=== PATIENT | female | born 1965 | race Caucasian/White ===

== ENCOUNTER → 2020-05-04 | Outpatient (CLI) | payer BC ==
--- NOTE | 2020-05-07 09:10 | MM ---
Reason for exam: screening (asymptomatic). Last mammogram was performed 4 years and 3 months ago. History: Patient is postmenopausal. Physical Findings: A clinical breast exam by your physician is recommended on an annual basis and results should be correlated with mammographic findings. MG Screening Mammo w CAD Bilateral CC, MLO, and XCCL view(s) were taken. Prior study comparison: February 08, 2016, bilateral screening mammo w CAD. October 14, 2006, bilateral [place] screening mammogram, performed at [facility]. The breast tissue is heterogeneously dense. This may lower the sensitivity of mammography. There is chronic nodularity bilateral axilla. There is no discrete abnormality. ASSESSMENT: Benign, BI-RAD 2 RECOMMENDATION: Routine screening mammogram of both breasts in 1 year.
== END | disposition home or self-care (01) ==
LOC: RADMAMWWP 12:56
PROVIDERS: ATTEND Family Medicine
DX: Z12.31 Encounter for screening mammogram for malignant neoplasm of breast (principal)
CPT/HCPCS: 77067

== ENCOUNTER 2022-05-19 10:59 | Inpatient (IN) | payer OTHER ==
[2022-05-19] MEDS ORDERED: KETOROLAC 15 MG/ML 1 ML VIAL IVP STA (11:38)
[2022-05-19] MEDS ORDERED: SODIUM CHLORIDE 0.9% 2,000 ML IV STA (11:38)
[2022-05-19] MEDS ORDERED: PANTOPRAZOLE 40 MG/10 ML VIAL IVP STA (11:38)
[2022-05-19] MEDS ORDERED: ONDANSETRON 4 MG/2 ML VIAL IVP STA (11:38)
--- NOTE | 2022-05-19 12:00 | ED ---
Abdominal Pain HPI - General Chief Complaint: Abdominal Pain Stated Complaint: abd & back pain/burning Time Seen by Provider: 05/19/22 11:21 Source: patient, RN notes reviewed Mode of arrival: wheelchair Limitations: no limitations - History of Present Illness Initial Comments: 56-year-old female presents emergency from chief complaint abdominal pain. P atient states his started recently. Patient states started having nausea and vomiting, epigastric abdominal pain. Patient states burning in nature rates her back. Patient states she's history of pancreatitis and this feels similar. Patient does admit that she drank alcohol yesterday. She states she's not drinking and regular basis. Patient states she does not know why she had pancreatitis in the past. No prior abdominal surgeries no chest pain or shortness breath. Denies fevers or chills patient does admit to nausea and diarrhea. - Related Data Home Medications Medication Instructions Recorded Confirmed Cholecalciferol [Vitamin D3] 1,000 unit PO DAILY 02/19/16 02/19/16 Gabapentin [Neurontin] 300 mg PO QAM 02/19/16 02/19/16 Gabapentin [Neurontin] 600 mg PO 1200 02/19/16 02/19/16 Gabapentin [Neurontin] 900 mg PO HS 02/19/16 02/19/16 Morphine Sulfate [Ms Contin] 60 mg PO BID 02/19/16 02/21/16 Oxybutynin Chloride [Ditropan XL] 15 mg PO HS 02/19/16 02/19/16 Sertraline HCl [Zoloft] 100 mg PO DAILY 02/19/16 02/19/16 nitrofurantoin macrocrystaL 100 mg PO BID 02/19/16 02/19/16 [Macrodantin] Allergies Allergy/AdvReac Type Severity Reaction Status Date / Time Penicillins Allergy Severe Unknown Verified 05/19/22 11:11 Sulfa (Sulfonamide Allergy Rash/Hives Verified 05/19/22 11:11 Antibiotics) Review of Systems ROS Statement: Those systems with pertinent positive or pertinent negative responses have been documented in the HPI. ROS Other: All systems not noted in ROS Statement are negative. Past Medical History Past Medical History: Osteoarthritis (OA) Additional Past Medical History / Comment(s): migraines, pancreatitis History of Any Multi-Drug Resistant Organisms: None Reported Past Surgical History: Orthopedic Surgery, Tubal Ligation, Uterine Ablation Additional Past Surgical History / Comment(s): left knee surgery age 8, Past Anesthesia/Blood Transfusion Reactions: No Reported Reaction Past Psychological History: No Psychological Hx Reported Past Alcohol Use History: None Reported Past Drug Use History: None Reported - Past Family History Mother Family Medical History: No Reported History General Exam Limitations: no limitations General appearance: alert, in no apparent distress Head exam: Present: atraumatic, normocephalic, normal inspection Eye exam: Present: normal appearance, PERRL, EOMI. Absent: scleral icterus, conjunctival injection, periorbital swelling ENT exam: Present: normal exam, normal oropharynx, mucous membranes moist Neck exam: Present: normal inspection, full ROM. Absent: tenderness, meningismus, lymphadenopathy Respiratory exam: Present: normal lung sounds bilaterally. Absent: respiratory distress, wheezes, rales, rhonchi, stridor Cardiovascular Exam: Present: regular rate, normal rhythm, normal heart sounds. Absent: systolic murmur, diastolic murmur, rubs, gallop, clicks GI/Abdominal exam: Present: soft, tenderness, normal bowel sounds. Absent: distended, guarding, rebound, rigid Back exam: Absent: CVA tenderness (R), CVA tenderness (L) Neurological exam: Present: alert Course Vital Signs 05/19/22 11:09 Temperature 97.8 F Pulse Rate 68 Respiratory 18 Rate Blood Pressure 110/70 O2 Sat by Pulse 99 Oximetry Medical Decision Making - Medical Decision Making 56-year-old presented for abdominal pain concern for pancreatitis a prescription 20,000, amylase 4000 CT shows evidence of severe acute chronic pancreatitis. Patient admitted for IV fluid hydration. - Lab Data Result diagrams: 05/19/22 12:04 05/19/22 12:04 Lab Results 05/19/22 05/19/22 05/19/22 Range/Units 12:04 12:04 12:04 WBC 8.5 (3.8-10.6) k/uL RBC 4.31 (3.80-5.40) m/uL Hgb 13.8 (11.4-16.0) gm/dL Hct 41.4 (34.0-46.0) % MCV 96.0 (80.0-100.0) fL MCH 31.9 (25.0-35.0) pg MCHC 33.3 (31.0-37.0) g/dL RDW 12.3 (11.5-15.5) % Plt Count 193 (150-450) k/uL MPV 7.5 Neutrophils % 89 % Lymphocytes % 7 % Monocytes % 3 % Eosinophils % 0 % Basophils % 0 % Neutrophils # 7.6 (1.3-7.7) k/uL Lymphocytes # 0.6 L (1.0-4.8) k/uL Monocytes # 0.3 (0-1.0) k/uL Eosinophils # 0.0 (0-0.7) k/uL Basophils # 0.0 (0-0.2) k/uL Sodium 137 (137-145) mmol/L Potassium 3.8 (3.5-5.1) mmol/L Chloride 101 (98-107) mmol/L Carbon Dioxide 24 (22-30) mmol/L Anion Gap 12 mmol/L BUN 22 H (7-17) mg/dL Creatinine 0.67 (0.52-1.04) mg/dL Est GFR (CKD-EPI)AfAm >90 (>60 ml/min/1.73 sqM) Est GFR (CKD-EPI)NonAf >90 (>60 ml/min/1.73 sqM) Glucose 147 H (74-99) mg/dL Plasma Lactic Acid Barry 1.3 (0.7-2.0) mmol/L Calcium 9.5 (8.4-10.2) mg/dL Total Bilirubin 0.4 (0.2-1.3) mg/dL AST 27 (14-36) U/L ALT 15 (4-34) U/L Alkaline Phosphatase 87 (38-126) U/L Total Protein 7.5 (6.3-8.2) g/dL Albumin 4.6 (3.5-5.0) g/dL Amylase 4107 H* (30-110) U/L Lipase >53390 H (23-300) U/L Disposition Clinical Impression: Acute pancreatitis Disposition: ADMITTED IP TO THIS HOSP Condition: Fair Referrals: Brandon Ibarra DO [Primary Care Provider] - 1-2 days Time of Disposition: 13:27
[2022-05-19 12:10] LABS: Basophils % (A) 0 %; Eosinophils % (A) 0 %; HCT 41.4 % (34.0-46.0); HGB 13.8 gm/dL (11.4-16.0); Lymphocytes # (A) 0.6 k/uL (1.0-4.8); Lymphocytes % (A) 7 %; MCH 31.9 pg (25.0-35.0); MCHC 33.3 g/dL (31.0-37.0); Mean Platelet Volume 7.5; Monocytes # (A) 0.3 k/uL (0-1.0); Monocytes % (A) 3 %; Neutrophils # (A) 7.6 k/uL (1.3-7.7); Neutrophils % (A) 89 %; Platelet Count 193 k/uL (150-450); RBC 4.31 m/uL (3.80-5.40); RDW 12.3 % (11.5-15.5); WBC 8.5 k/uL (3.8-10.6)
[2022-05-19 12:31] LABS: ALT 15 U/L (4-34); AST 27 U/L (14-36); African American GFR (CKD) >90 (>60 ml/min/1.73 sqM); Albumin 4.6 g/dL (3.5-5.0); Alkaline Phosphatase 87 U/L (38-126); Anion Gap 12 mmol/L; Blood Urea Nitrogen 22 mg/dL (7-17); Calcium 9.5 mg/dL (8.4-10.2); Carbon Dioxide 24 mmol/L (22-30); Chloride 101 mmol/L (98-107); Glucose 147 mg/dL (74-99); Non-African American GFR(CKD) >90 (>60 ml/min/1.73 sqM); Potassium 3.8 mmol/L (3.5-5.1); Sodium 137 mmol/L (137-145); Total Bilirubin 0.4 mg/dL (0.2-1.3); Total Protein 7.5 g/dL (6.3-8.2)
--- NOTE | 2022-05-19 12:42 | CT ---
EXAMINATION TYPE: CT abdomen pelvis w con DATE OF EXAM: 05/19/2022 HISTORY: Epigastric pain, history of pancreatitis CT DLP: 692.1mGycm Automated Exposure Control for Dose Reduction was Utilized. CONTRAST: CT scan of the abdomen and pelvis is performed without oral but with IV Contrast, patient injected wi th 100 mL of Isovue 300. COMPARISON: None FINDINGS: LUNG BASES: No significant abnormality is appreciated. LIVER/GB: Subcentimeter low dense lesion left hepatic lobe axial image 17 is too small to further saira racterize. No suspicious biliary dilatation. PANCREAS: There are scattered calcifications throughout the entire pancreas particularly peripheral i n location. There is asymmetric prominence or enlargement in the distal body. There is marked ill-def ined surrounding fluid. No well-formed fluid collection is identified no areas of nonenhancement or n ecrosis clearly seen. Pancreatic duct visualized but measuring upper limits of normal. Coronal images show difficulty visualizing distal common bile duct to assess anatomy near the duodenal ampulla. No free air. SPLEEN: No significant abnormality is seen. ADRENALS: No significant abnormality is seen. KIDNEYS: No significant abnormality is seen. BOWEL: No significant abnormality is seen. UTERUS/ADNEXA: Anteverted uterus. LYMPH NODES: No greater than 1cm abdominal or pelvic lymph nodes are appreciated. OSSEOUS STRUCTURES: Moderate disc space narrowing lumbosacral junction. Facet arthropathy lower lumba r levels. OTHER: Stimulator device in the left posterior soft tissue is noted. IMPRESSION: CT findings consistent with severe acute on chronic pancreatitis as detailed above. No we ll-formed fluid collection identified. No areas of nonenhancement or necrosis clearly seen.
[2022-05-19 13:16] LABS: Amylase 4107 U/L (30-110); Lipase >20000 U/L (23-300)
[2022-05-19] MEDS ORDERED: HYDROmorphone 0.5 MG/0.5 ML SYRINGE IVP STA (13:27)
[2022-05-19] MEDS ORDERED: HYDROmorphone 0.5 MG/0.5 ML SYRINGE IVP PRN (13:28)
[2022-05-19] MEDS ORDERED: NALOXONE 0.4 MG/ML 1 ML VIAL IV PRN (13:28)
[2022-05-19] MEDS ORDERED: KETOROLAC 15 MG/ML 1 ML VIAL IVP PRN (13:28)
[2022-05-19] MEDS ORDERED: ONDANSETRON 4 MG/2 ML VIAL IVP PRN (13:28)
[2022-05-19] MEDS ORDERED: SODIUM CHLORIDE 0.9% 1,000 ML IV SCH (13:30)
[2022-05-19] MEDS: HYDROmorphone 1 MG/ML 1 ML SYRINGE IVP PRN ×2 (16:09→19:46)
[2022-05-19] MEDS: SODIUM CHLORIDE 0.9% 1,000 ML IV SCH ×2 (17:16→20:51)
--- NOTE | 2022-05-19 17:27 | P.HPIM ---
History of Present Illness H&P Date: 05/19/22 Chief Complaint: Abdominal pain This is a pleasant 56-year-old female who presents to [facility] with sudden onset abdominal pain nausea vomiting and diarrhea. Diarrhea has since resolved. Patient states that abdominal pain radiates to the back. Nausea and vomiting have improved. Patient denies alcohol dependence. However she does admit she went with her last night and had a few Beers. Patient states that a similar episode happened about a year ago. The cause was not identified. Patient does not have a significant medical history except for some chronic aches and pains she takes ibuprofen for. Patient denies chest pain, shortness breath, fever, chills, focal neurological deficits, headache or dizziness. Patient is currently resting in bed comfortably. Review of Systems A 14 point review of systems was assessed patient was only positive for those pertinent in HPI. Past Medical History Past Medical History: Osteoarthritis (OA) Additional Past Medical History / Comment(s): migraines, pancreatitis History of Any Multi-Drug Resistant Organisms: None Reported Past Surgical History: Orthopedic Surgery, Tubal Ligation, Uterine Ablation Additional Past Surgical History / Comment(s): left knee surgery age 8, Past Anesthesia/Blood Transfusion Reactions: No Reported Reaction Past Psychological History: No Psychological Hx Reported Past Alcohol Use History: None Reported Past Drug Use History: None Reported - Past Family History Mother Family Medical History: No Reported History Medications and Allergies Home Medications Medication Instructions Recorded Confirmed Type Ibuprofen [Motrin Ib] 800 mg PO Q8H PRN 05/19/22 05/19/22 History Allergies Allergy/AdvReac Type Severity Reaction Status Date / Time Penicillins Allergy Severe Anaphylaxis Verified 05/19/22 13:47 Sulfa (Sulfonamide Allergy Rash/Hives Verified 05/19/22 13:47 Antibiotics) Physical Exam Osteopathic Statement: *. No significant issues noted on an osteopathic structural exam other than those noted in the History and Physical/Consult. Vitals: Vital Signs Temp Pulse Resp BP Pulse Ox 05/19/22 16:00 67 18 105/56 98 05/19/22 11:09 97.8 F 68 18 110/70 99 Intake and Output 05/19/22 05/19/22 05/19/22 06:59 14:59 22:59 Other: Weight 58.06 kg General: [non toxic], [no distress], [appears at stated age] Derm: [warm], [dry] Head: [atraumatic], [normocephalic], [symmetric] Eyes: [EOMI], [no lid lag], [anicteric sclera] Mouth: [no lip lesion], [mucus membranes moist] Cardiovascular: [S1S2 reg], [no murmur], [positive posterior tibial pulse bilateral], Lungs: [CTA bilateral], [no rhonchi, no rales] , [no accessory muscle use] Abdominal: [soft], [ epigastric tenderness to palpation], [no guarding], [no appreciable organomegaly] Ext: [no gross muscle atrophy], [no edema], [no contractures] Neuro: [ CN II-XI grossly intact], [no focal neuro deficits] Psych: [Alert], [oriented], [appropriate affect] Results CBC & Chem 7: 05/19/22 12:04 05/19/22 12:04 Labs: Abnormal Lab Results - Last 24 Hours (Table) 05/19/22 05/19/22 Range/Units 12:04 12:04 Lymphocytes # 0.6 L (1.0-4.8) k/uL BUN 22 H (7-17) mg/dL Glucose 147 H (74-99) mg/dL Amylase 4107 H* (30-110) U/L Lipase >48137 H (23-300) U/L Thrombosis Risk Factor Assmnt - DVT/VTE Prophylaxis DVT/VTE Prophylaxis: Pharmacologic Prophylaxis ordered Assessment and Plan Assessment: Assessment: 1. Abdominal pain secondary to acute pancreatitis CT of the abdomen and pelvis 05/19/22 shows findings consistent with severe acute on chronic pancreatitis Fluid boluses received in the ER Continue IV fluids at 175 miles per hour Consult GI Trend amylase lipase Pain control Nothing by mouth screening labs ordered check hba1c, lipid, Ca 19-9, and alcohol level 2. chronic pain due to Osteoarthritis 3. GI/DVT prophylaxis 4. AM labs Patient is a full code Anticipated length of stay is greater than 2 midnight stay Greater than 30 minutes spent coordinating care documenting and counseling patient. Time with Patient: Greater than 30
[2022-05-19 18:04] LABS: Alcohol <10 mg/dL
[2022-05-19] MEDS: HEPARIN SODIUM,PORCINE/PF 5,000 UNIT/0.5 ML SYRINGE SQ SCH ×2 (19:43→23:23)
[2022-05-20] MEDS: HYDROmorphone 1 MG/ML 1 ML SYRINGE IVP PRN ×4 (00:47→17:27)
[2022-05-20 00:51] LABS: Chol/HDL Ratio 1.76 Ratio; VLDL Calculation 14.12 mg/dL (5.00-40.00)
[2022-05-20] MEDS: SODIUM CHLORIDE 0.9% 1,000 ML IV SCH ×4 (04:50→19:00)
[2022-05-20] MEDS: PANTOPRAZOLE 40 MG/10 ML VIAL IV SCH (08:01)
[2022-05-20] MEDS: HEPARIN SODIUM,PORCINE/PF 5,000 UNIT/0.5 ML SYRINGE SQ SCH ×2 (08:01→16:54)
--- NOTE | 2022-05-20 10:04 | P.CONS ---
History of Present Illness - Reason for Consult Consult date: 05/20/22 Acute pancreatitis Requesting physician: Brandon Martino - Chief Complaint Abdominal pain - History of Present Illness This is a pleasant 56-year-old female who presented to the emergency department yesterday afternoon with complaints of severe upper abdominal pain, mid epi gastric radiating to her back associated with nausea and vomiting. She has no significant past medical history other than previous pancreatitis. She is a current every day smoker. She was evaluated in the emergency department noted to have elevation in her amylase at 4107 and lipase greater than 20,000. She had a CT of the abdomen and pelvis showing acute on chronic uncomplicated pancreatitis, no CBD dilation. Patient's states pain was 10 out of 10 on admission, it has now improved. She has no nausea or vomiting at this time. She was tolerating some ice chips yesterday evening. Patient admits to previous pancreatitis approximately one year ago. Alcohol related. Patient denies any s ignificant alcohol dependence however states Thursday night she did have a few beers prior to onset of pain yesterday. She denies any chest pain, shortness of breath, fevers, chills. Again abdominal pain improved about a 6 out of 10, no associated nausea or vomiting at this time or diarrhea. Admitting Labs: WBC 8.5 hemoglobin 13.8 hematocrit 41 platelet count 193,000 sodium 137 potassium 3.8B 122 creatinine 0.67 total bilirubin 0.4 AST 27 AST 15 alkaline phosphatase 87 amylase 4107 lipase greater than 20,000 CA-19-9 14 serum alcohol less than 10 triglycerides 70 Review of Systems REVIEW OF SYSTEMS: CARDIOPULMONARY: No chest pain or shortness of breath. Gastrointestinal: Epigastric pain, right upper quadrant pain. No nausea or vomiting. No hematemesis, coffee-ground emesis. No rectal bleeding, or melena. GENITOURINARY: No dysuria or hematuria. MUSCULOSKELETAL: Reports normal range of motion. Occasional Joint pain. SKIN: No rashes. No jaundice. ENDOCRINE: No chills, fevers. No excessive weight gain or loss. No polydipsia or polyuria. PSYCHIATRIC: Unremarkable. NEUROLOGY: No change in mental status. Denies dizziness, headache. ENT: Vision unremarkable. CONSTITUTIONAL: No recent weight loss. No fever, chills, night sweats. Past Medical History Past Medical History: Osteoarthritis (OA) Additional Past Medical History / Comment(s): migraines, pancreatitis History of Any Multi-Drug Resistant Organisms: None Reported Past Surgical History: Orthopedic Surgery, Tubal Ligation, Uterine Ablation Additional Past Surgical History / Comment(s): left knee surgery age 8, Past Anesthesia/Blood Transfusion Reactions: No Reported Reaction Past Psychological History: No Psychological Hx Reported Smoking Status: Current every day smoker Past Alcohol Use History: None Reported Additional Past Alcohol Use History / Comment(s): smokes 1/2 PPD for past 30 yrs Past Drug Use History: None Reported - Past Family History Mother Family Medical History: No Reported History Medications and Allergies Home Medications Medication Instructions Recorded Confirmed Type Ibuprofen [Motrin Ib] 800 mg PO Q8H PRN 05/19/22 05/19/22 History Allergies Allergy/AdvReac Type Severity Reaction Status Date / Time Penicillins Allergy Severe Anaphylaxis Verified 05/19/22 13:47 Sulfa (Sulfonamide Allergy Rash/Hives Verified 05/19/22 13:47 Antibiotics) Physical Exam Vitals: Vital Signs Temp Pulse Pulse Resp BP BP Pulse Ox 05/20/22 08:00 97.6 F 61 14 109/67 95 05/20/22 02:00 98.4 F 86 17 106/64 93 L 05/19/22 21:05 98.2 F 67 18 111/64 96 05/19/22 19:04 98.3 F 67 17 111/64 97 05/19/22 16:00 67 18 105/56 98 05/19/22 11:09 97.8 F 68 18 110/70 99 Intake and Output 05/19/22 05/20/22 05/20/22 22:59 06:59 14:59 Intake Total 1560 Balance 1560 Intake: Intake, IV Titration 1560 Amount Sodium Chloride 0.9% 1, 1560 000 ml @ 130 mls/hr IV . Q7H42M [facility] Rx#:[id number] Oral 0 Other: Voiding Method Toilet # Voids 2 Weight 58.06 kg General appearance: The patient is alert, oriented, appears in no acute distress. HET: Head is normocephalic and atraumatic. Conjunctiva pink. Sclera anicteric. Neck: Supple without lymphadenopathy. Trachea midline. Heart: S1 S2. Regular rate and rhythm. Lungs: Clear to auscultation. Abdomen: Soft, right upper quadrant and epigastric tenderness to palpation, nondistended with bowel sounds. No guarding or rigidity. Skin: No rashes. No jaundice. Extremities: Normal skin color and turgor. No pedal edema. Neurological: No focal deficits. Alert and oriented x3. Results CBC & Chem 7: 05/20/22 07:03 05/20/22 07:03 Labs: Abnormal Lab Results - Last 24 Hours (Table) 05/19/22 05/19/22 05/19/22 Range/Units 12:04 12:04 17:25 Lymphocytes # 0.6 L (1.0-4.8) k/uL BUN 22 H (7-17) mg/dL Glucose 147 H (74-99) mg/dL HDL Cholesterol 85.90 H (40.00-60.00) mg/dL Amylase 4107 H* (30-110) U/L Lipase >58664 H (23-300) U/L Comments: CT abdomen and pelvis with IV contrast: CT findings consistent with severe acute on chronic pancreatitis. No well-formed fluid collection identified. No areas of non-enhancement or necrosis clearly seen. There was a subcentimeter low dense lesion left hepatic lobe too small to further characterize. No suspicious biliary dilation. CT scan - pelvis: report reviewed Assessment and Plan (1) Acute pancreatitis Narrative/Plan: 56-year-old female with a prior history of pancreatitis, alcohol related approximately 1 year ago presented to the emergency department with severe epigastric pain radiating to her back associated with nausea and vomiting. Workup showed elevation in amylase and lipase consistent with pancreatitis as well as a CT of the abdomen and pelvis reporting acute on chronic uncomplicated pancreatitis. Pain is improving at this time. Patient's denies any significant alcohol dependence or abuse. However states prior episode and this episode pancreatitis was followed from consumption of alcohol the day before. Triglycerides were normal at 70. No new medications. This LFTs are within normal limits. Likely etiology is alcohol induced pancreatitis, however we have to investigate other possible etiologies. Patient states she is not a daily drinker and no previous history of alcohol abuse. Will further investigated with SHYAM, IgG 4 and outpatient follow-up.. Discussed with patient importance of complete alcohol cessation, smoking cessation to decrease recurrent pancreatitis. Continue symptomatic treatment. Current Visit: Yes Status: Acute Code(s): K85.90 - ACUTE PANCREATITIS WITHOUT NECROSIS OR INFECTION, UNSP SNOMED Code(s): 965258924 Plan: 1. Continue symptomatic and supportive care 2. Continue aggressive IV fluids. 3. Pain medication as needed 4. Protonix 40 mg daily GI prophylaxis 5. Antiemetics as needed 6. Alcohol abstinence 7. Smoking cessation 8. Advance to clear liquid diet 9. SHYAM, IGG4 ordered Thank you for this consultation, we will continue to follow. Dr. Nadeem Alicea I agree with the dictator's note, documented as a scribe by Courtney George.
[2022-05-20 10:59] LABS: Basophils # (A) 0.04 X 10*3/uL (0.00-0.10); Basophils % (A) 0.6 %; Eosinophils # (A) 0.09 X 10*3/uL (0.04-0.35); Eosinophils % (A) 1.3 %; HCT 33.4 % (37.2-46.3); HGB 11.2 g/dL (12.0-15.0); Immature Grans, Automated 0.1 %; Lymphocytes # (A) 1.33 X 10*3/uL (0.90-5.00); Lymphocytes % (A) 19.7 %; MCHC 33.5 g/dL (32.0-37.0); MCV 95.4 fL (80.0-97.0); Mean Platelet Volume 10.6 fL (9.5-12.2); Monocytes # (A) 0.64 X 10*3/uL (0.20-1.00); Monocytes % (A) 9.5 %; NRBC Per 100 WBC 0 /100 WBCS (0.0-0.0); Neutrophils # (A) 4.63 X 10*3/uL (1.80-7.70); Neutrophils % (A) 68.8 %; Platelet Count 144 X 10*3/uL (140-440); WBC 6.74 X 10*3/uL (4.50-10.00)
[2022-05-20 11:21] LABS: ALT 11 U/L (8-44); AST 19 U/L (13-35); African American GFR (CKD) 117.3 (60.0-200.0); Albumin 3.6 g/dL (3.8-4.9); Alkaline Phosphatase 57 U/L (41-126); BUN/Creat Ratio 24.83 Ratio (12.00-20.00); Blood Urea Nitrogen 14.9 mg/dL (9.0-27.0); Calcium 8.3 mg/dL (8.7-10.3); Carbon Dioxide 26.7 mmol/L (20.0-27.5); Chloride 108 mmol/L (96-109); Glucose 93 mg/dL (70-110); Non-African American GFR(CKD) 101.2 (60.0-200.0); Potassium 3.4 mmol/L (3.5-5.5); Sodium 141 mmol/L (135-145); Total Protein 5.6 g/dL (6.2-8.2)
[2022-05-20 11:46] LABS: Amylase 1786 U/L (23-121); Lipase >3000 U/L (14-63)
--- NOTE | 2022-05-20 14:00 | P.PN ---
Subjective Progress Note Date: 05/20/22 Principal diagnosis: abdominal pain Hospital Course: 56-year-old female with history of prior pancreatitis, possibly alcohol related presented with severe epigastric pain with nausea and vomiting. She is being admitted for acute on chronic uncomplicated pancreatitis. Currently on IV fluids. Autoimmune pancreatitis workup pending. Subjective: Patient seen and examined at bedside. No acute events overnight. She claims that her abdominal pain is much improved compared to before. She denies any vomiting, but continues to have slight nausea. She denies any chest pain, shortness of breath, urinary or bowel complaints. Pertinent positives and negatives as discussed above, a complete review of systems was performed and all other systems are negative. Vitals Signs Reviewed. General: nontoxic, no distress, appears at stated age Derm: warm, dry Head: atraumatic, normocephalic, symmetric Eyes: EOMI, no lid lag, anicteric sclera Mouth: no lip lesion, mucus membranes moist Cardiovascular: S1S2 reg, no murmur Lungs: CTA bilateral, no rhonchi, no rales , no accessory muscle use Abdominal: soft, mild tenderness to palpation in the epigastric region, no guarding, no appreciable organomegaly Ext: no gross muscle atrophy, no edema, no contractures Neuro: CN II-XI grossly intact, no focal neuro deficits Psych: Alert, oriented, appropriate affect Assessment and Plan: Acute uncomplicated pancreatitis -CT abd/pelvis did not show any biliary dilatation -GI following, autoimmune pancreatitis workup pending -IV fluids, pain control -Advance diet as tolerated -Antiemetics Chronic pain secondary to osteoarthritis -Pain control DVT ppx: Heparin subcu Code status: Full code Anticipated discharge place: Home Anticipated discharge time: 1-2 days Objective - Vital Signs Vital signs: Vital Signs Temp 97.6 F 05/20/22 08:00 Pulse 61 05/20/22 08:00 Resp 14 05/20/22 08:00 BP 109/67 05/20/22 08:00 Pulse Ox 95 05/20/22 08:00 FiO2 Intake & Output 05/19/22 05/20/22 05/20/22 18:59 06:59 18:59 Intake Total 1560 Balance 1560 Weight 58.06 kg 58.06 kg Intake: Intake, IV Titration 1560 Amount Sodium Chloride 0.9% 1, 1560 000 ml @ 130 mls/hr IV . Q7H42M [facility] Rx#:[id number] Oral 0 Other: Voiding Method Toilet # Voids 2 - Labs CBC & Chem 7: 05/20/22 07:03 05/20/22 07:03 Labs: Abnormal Lab Results - Last 24 Hours (Table) 05/19/22 05/20/22 05/20/22 Range/Units 17:25 07:03 07:03 RBC 3.50 L (4.10-5.20) X 10*6/uL Hgb 11.2 L (12.0-15.0) g/dL Hct 33.4 L (37.2-46.3) % Potassium 3.4 L (3.5-5.5) mmol/L Anion Gap 6.30 L (10.00-18.00) mmol/L BUN/Creatinine Ratio 24.83 H (12.00-20.00) Ratio Calcium 8.3 L (8.7-10.3) mg/dL Total Protein 5.6 L (6.2-8.2) g/dL Albumin 3.6 L (3.8-4.9) g/dL HDL Cholesterol 85.90 H (40.00-60.00) mg/dL Amylase 1786 H* (23-121) U/L Lipase >3000 H (14-63) U/L
[2022-05-21] MEDS: HEPARIN SODIUM,PORCINE/PF 5,000 UNIT/0.5 ML SYRINGE SQ SCH ×4 (00:06→23:40)
[2022-05-21] MEDS: SODIUM CHLORIDE 0.9% 1,000 ML IV SCH ×2 (00:17→16:43)
[2022-05-21] MEDS: HYDROmorphone 1 MG/ML 1 ML SYRINGE IVP PRN ×4 (00:17→19:55)
[2022-05-21] MEDS: PANTOPRAZOLE 40 MG/10 ML VIAL IV SCH (08:22)
[2022-05-21 11:08] LABS: Anion Gap 9.4 mmol/L (10.00-18.00); BUN/Creat Ratio 12.98 Ratio (12.00-20.00); Blood Urea Nitrogen 7.9 mg/dL (9.0-27.0); Calcium 8.3 mg/dL (8.7-10.3); Magnesium 1.7 mg/dL (1.5-2.4); Non-African American GFR(CKD) 100.9 (60.0-200.0); Potassium 3.4 mmol/L (3.5-5.5)
[2022-05-21] MEDS: DOCUSATE 100 MG CAP PO SCH (12:03)
--- NOTE | 2022-05-21 12:51 | P.PN ---
Subjective Progress Note Date: 05/21/22 Principal diagnosis: abdominal pain Hospital Course: 56-year-old female with history of prior pancreatitis, possibly alcohol related presented with severe epigastric pain with nausea and vomiting. She is being admitted for acute on chronic uncomplicated pancreatitis. Currently on IV fluids. Autoimmune pancreatitis workup pending. Slowly advancing diet. Subjective: Patient seen and examined at bedside. No acute events overnight. She claims that her abdominal pain is much improved compared to before. She denies any vomiting, but continues to have slight nausea. She denies any chest pain, shortness of breath, urinary or bowel complaints. Pertinent positives and negatives as discussed above, a complete review of systems was performed and all other systems are negative. Vitals Signs Reviewed. General: nontoxic, no distress, appears at stated age Derm: warm, dry Head: atraumatic, normocephalic, symmetric Eyes: EOMI, no lid lag, anicteric sclera Mouth: no lip lesion, mucus membranes moist Cardiovascular: S1S2 reg, no murmur Lungs: CTA bilateral, no rhonchi, no rales , no accessory muscle use Abdominal: soft, mild tenderness to palpation in the epigastric region, no guarding, no appreciable organomegaly Ext: no gross muscle atrophy, no edema, no contractures Neuro: CN II-XI grossly intact, no focal neuro deficits Psych: Alert, oriented, appropriate affect Assessment and Plan: Acute uncomplicated pancreatitis -CT abd/pelvis did not show any biliary dilatation -GI following, autoimmune pancreatitis workup pending -IV fluids, pain control -Advance diet to full liquids today -Antiemetics Chronic pain secondary to osteoarthritis -Pain control DVT ppx: Heparin subcu Code status: Full code Anticipated discharge place: Home Anticipated discharge time: 1-2 days Objective - Vital Signs Vital signs: Vital Signs Temp 98.5 F 05/21/22 08:00 Pulse 75 05/21/22 08:00 Resp 14 05/21/22 08:00 BP 119/66 05/21/22 08:00 Pulse Ox 95 05/21/22 08:00 FiO2 Intake & Output 05/20/22 05/21/22 05/21/22 18:59 06:59 18:59 Intake Total 2280 Balance 2280 Intake: Intake, IV Titration 1800 Amount Sodium Chloride 0.9% 1, 1800 000 ml @ 150 mls/hr IV . Q6H40M [facility] Rx#:[id number] Oral 480 Other: Voiding Method Toilet # Voids 9 1 # Bowel Movements 0 - Labs CBC & Chem 7: 05/20/22 07:03 05/21/22 06:06 Labs: Abnormal Lab Results - Last 24 Hours (Table) 05/21/22 Range/Units 06:06 Potassium 3.4 L (3.5-5.5) mmol/L Anion Gap 9.40 L (10.00-18.00) mmol/L BUN 7.9 L (9.0-27.0) mg/dL Calcium 8.3 L (8.7-10.3) mg/dL
[2022-05-21 16:36] LABS: Amylase 1416 U/L (23-121); Lipase >3000 U/L (14-63)
--- NOTE | 2022-05-21 16:44 | P.PN ---
Subjective Progress Note Date: 05/21/22 Principal diagnosis: Acute pancreatitis This is a pleasant 56-year-old female who presented to the emergency department yesterday afternoon with complaints of severe upper abdominal pain, mid epigastric radiating to her back associated with nausea and vomiting. She has no significant past medical history other than previous pancreatitis. She is a current every day smoker. She was evaluated in the emergency department noted to have elevation in her amylase at 4107 and lipase greater than 20,000. She had a CT of the abdomen and pelvis showing acute on chronic uncomplicated pancreatitis, no CBD dilation. Patient's states pain was 10 out of 10 on admission, it has now improved. She has no nausea or vomiting at this time. She was tolerating some ice chips yesterday evening. Patient admits to previous pancreatitis approximately one year ago. Alcohol related. Patient denies any significant alcohol dependence however states Thursday night she did have a few beers prior to onset of pain yesterday. She denies any chest pain, shortness of breath, fevers, chills. Again abdominal pain improved about a 6 out of 10, no associated nausea or vomiting at this time or diarrhea. 05/13/2022: Patient seen and examined is follow-up for acute pancreatitis. States that abdominal pain is definitely better than Thursday however still not feeling that well. No nausea or vomiting. She is tolerating clear liquid diet. Amylase 1416 lipase greater than 3000. She denies any bowel movement since her hospitalization. She says she has been up and ambulating in her room. The triglycerides 70, SHYAM and IgG4 pending Objective - Vital Signs Vital signs: Vital Signs Temp 98.5 F 05/21/22 08:00 Pulse 75 05/21/22 08:00 Resp 14 05/21/22 08:00 BP 119/66 05/21/22 08:00 Pulse Ox 95 05/21/22 08:00 FiO2 Intake & Output 05/20/22 05/21/22 05/21/22 18:59 06:59 18:59 Intake Total 2280 Balance 2280 Intake: Intake, IV Titration 1800 Amount Sodium Chloride 0.9% 1, 1800 000 ml @ 150 mls/hr IV . Q6H40M [facility] Rx#:[id number] Oral 480 Other: Voiding Method Toilet # Voids 9 1 # Bowel Movements 0 - Exam General appearance: The patient is alert, oriented, appears in no acute distress. HET: Head is normocephalic and atraumatic. Conjunctiva pink. Sclera anicteric. Neck: Supple without lymphadenopathy. Abdomen: Soft, right upper quadrant/epigastric tenderness, nondistended with bowel sounds. No guarding or rigidity. Extremities: Normal skin color and turgor. No pedal edema Skin: No rashes, no jaundice Neurological: No focal deficits. Alert and oriented -3. - Labs CBC & Chem 7: 05/20/22 07:03 05/21/22 06:06 Labs: Abnormal Lab Results - Last 24 Hours (Table) 05/20/22 05/20/22 Range/Units 07:03 07:03 RBC 3.50 L (4.10-5.20) X 10*6/uL Hgb 11.2 L (12.0-15.0) g/dL Hct 33.4 L (37.2-46.3) % Potassium 3.4 L (3.5-5.5) mmol/L Anion Gap 6.30 L (10.00-18.00) mmol/L BUN/Creatinine Ratio 24.83 H (12.00-20.00) Ratio Calcium 8.3 L (8.7-10.3) mg/dL Total Protein 5.6 L (6.2-8.2) g/dL Albumin 3.6 L (3.8-4.9) g/dL Amylase 1786 H* (23-121) U/L Lipase >3000 H (14-63) U/L Assessment and Plan (1) Acute pancreatitis Narrative/Plan: 56-year-old female with a prior history of pancreatitis, alcohol related approximately 1 year ago presented to the emergency department with severe epigastric pain radiating to her back associated with nausea and vomiting. Workup showed elevation in amylase and lipase consistent with pancreatitis as well as a CT of the abdomen and pelvis reporting acute on chronic uncomplicated pancreatitis. Pain is improving at this time. Patient's denies any significant alcohol dependence or abuse. However states prior episode and this episode rios creatitis was followed from consumption of alcohol the day before. Triglycerides were normal at 70. No new medications. This LFTs are within normal limits. Likely etiology is alcohol induced pancreatitis, however we have to investigate other possible etiologies. Patient states she is not a daily drinker and no previous history of alcohol abuse. Will further investigated with SHYAM, IgG 4 and outpatient follow-up.. Discussed with patient importance of complete alcohol cessation, smoking cessation to decrease recurrent pancreatitis. Continue symptomatic treatment. We'll plan for outpatient follow-up for endoscopic ultrasound Current Visit: Yes Status: Acute Code(s): K85.90 - ACUTE PANCREATITIS WITHOUT NECROSIS OR INFECTION, UNSP SNOMED Code(s): 409546772 Plan: 1. Continue symptomatic and supportive care 2. Continue aggressive IV fluids. 3. Pain medication as needed 4. Protonix 40 mg daily GI prophylaxis 5. Antiemetics as needed 6. Alcohol abstinence 7. Smoking cessation 8. Advance to full liquid diet, then low-fat diet as tolerated 9. SHYAM, IGG4 ordered 10. Will plan for outpatient endoscopic ultrasound done at [facility] Thank you for this consultation, we will continue to follow. Dr. Nadeem Alicea I agree with the dictator's note, documented as a scribe by Courtney George.
[2022-05-22] MEDS: SODIUM CHLORIDE 0.9% 1,000 ML IV SCH ×2 (00:56→15:23)
[2022-05-22] MEDS: PANTOPRAZOLE 40 MG/10 ML VIAL IV SCH (08:00)
[2022-05-22] MEDS: DOCUSATE 100 MG CAP PO SCH (08:00)
[2022-05-22] MEDS: HEPARIN SODIUM,PORCINE/PF 5,000 UNIT/0.5 ML SYRINGE SQ SCH ×3 (08:07→22:38)
--- NOTE | 2022-05-22 12:42 | P.PN ---
Subjective Progress Note Date: 05/22/22 Principal diagnosis: abdominal pain Hospital Course: 56-year-old female with history of prior pancreatitis, possibly alcohol related presented with severe epigastric pain with nausea and vomiting. She is being admitted for acute on chronic uncomplicated pancreatitis. Currently on IV fluids. Autoimmune pancreatitis workup pending. Slowly advancing diet, on full liquids. Subjective: Patient seen and examined at bedside. No acute events overnight. She claims that her abdominal pain is improved. She denies any vomiting or nausea. She was able to tolerate clear liquids, but still slowly trying full liquids. She denies any chest pain, shortness of breath, urinary or bowel complaints. Pertinent positives and negatives as discussed above, a complete review of systems was performed and all other systems are negative. Vitals Signs Reviewed. General: nontoxic, no distress, appears at stated age Derm: warm, dry Head: atraumatic, normocephalic, symmetric Eyes: EOMI, no lid lag, anicteric sclera Mouth: no lip lesion, mucus membranes moist Cardiovascular: S1S2 reg, no murmur Lungs: CTA bilateral, no rhonchi, no rales , no accessory muscle use Abdominal: soft, mild tenderness to palpation in the epigastric region, no guarding, no appreciable organomegaly Ext: no gross muscle atrophy, no edema, no contractures Neuro: CN II-XI grossly intact, no focal neuro deficits Psych: Alert, oriented, appropriate affect Assessment and Plan: Acute uncomplicated pancreatitis -CT abd/pelvis did not show any biliary dilatation -GI following, autoimmune pancreatitis workup pending -IV fluids discontinued -pain control -Advance diet to full liquids today -Antiemetics Constipation -Bowel regimen Chronic pain secondary to osteoarthritis -Pain control DVT ppx: Heparin subcu Code status: Full code Anticipated discharge place: Home Anticipated discharge time: tomorrow Objective - Vital Signs Vital signs: Vital Signs Temp 97.6 F 05/22/22 08:00 Pulse 76 05/22/22 08:00 Resp 17 05/22/22 08:00 BP 124/75 05/22/22 08:00 Pulse Ox 95 05/22/22 08:00 FiO2 Intake & Output 05/21/22 05/22/22 05/22/22 18:59 06:59 18:59 Intake Total 1680 Balance 1680 Intake: Intake, IV Titration 1200 Amount Sodium Chloride 0.9% 1, 1200 000 ml @ 100 mls/hr IV . Q10H [facility] Rx#:[id number] Oral 480 Other: # Voids 7 2 - Labs CBC & Chem 7: 05/20/22 07:03 05/21/22 06:06 Labs: Abnormal Lab Results - Last 24 Hours (Table) 05/21/22 05/21/22 05/22/22 Range/Units 06:06 06:06 08:31 Amylase 1416 H* (23-121) U/L Lipase >3000 H 28439 H (14-63) U/L IgG2 233.60 L (241.80-700.30) mg/dL IgG3 20.80 L (21.82-176.00) mg/dL
[2022-05-22] MEDS ORDERED: ACETAMINOPHEN TAB 325 MG TAB PO PRN (14:35)
--- NOTE | 2022-05-22 14:38 | P.PN ---
Subjective Progress Note Date: 05/22/22 Principal diagnosis: Acute pancreatitis This is a pleasant 56-year-old female who presented to the emergency department yesterday afternoon with complaints of severe upper abdominal pain, mid epigastric radiating to her back associated with nausea and vomiting. She has no significant past medical history other than previous pancreatitis. She is a current every day smoker. She was evaluated in the emergency department noted to have elevation in her amylase at 4107 and lipase greater than 20,000. She had a CT of the abdomen and pelvis showing acute on chronic uncomplicated pancreatitis, no CBD dilation. Patient's states pain was 10 out of 10 on admission, it has now improved. She has no nausea or vomiting at this time. She was tolerating some ice chips yesterday evening. Patient admits to previous pancreatitis approximately one year ago. Alcohol related. Patient denies any significant alcohol dependence however states Thursday night she did have a few beers prior to onset of pain yesterday. She denies any chest pain, shortness of breath, fevers, chills. Again abdominal pain improved about a 6 out of 10, no associated nausea or vomiting at this time or diarrhea. 05/21/2022: Patient seen and examined is follow-up for acute pancreatitis. States that abdominal pain is definitely better than Thursday however still not feeling that well. No nausea or vomiting. She is tolerating clear liquid diet. Amylase 1416 lipase greater than 3000. She denies any bowel movement since her hospitalization. She says she has been up and ambulating in her room. The triglycerides 70, SHYAM and IgG4 pending 05/22/2022: Patient seen and examined is follow-up for acute pancreatitis. States she ate her breakfast this morning which is full liquids and following started having some epigastric discomfort again. She's having nausea but no vomiting. Repeat lipase 11,000. She's afebrile. Objective - Vital Signs Vital signs: Vital Signs Temp 97.6 F 05/22/22 08:00 Pulse 76 05/22/22 08:00 Resp 17 05/22/22 08:00 BP 124/75 05/22/22 08:00 Pulse Ox 95 05/22/22 08:00 FiO2 Intake & Output 05/21/22 05/22/22 05/22/22 18:59 06:59 18:59 Intake Total 1680 Balance 1680 Intake: Intake, IV Titration 1200 Amount Sodium Chloride 0.9% 1, 1200 000 ml @ 100 mls/hr IV . Q10H [facility] Rx#:[id number] Oral 480 Other: # Voids 7 2 - Exam General appearance: The patient is alert, oriented, appears in no acute distress. HET: Head is normocephalic and atraumatic. Conjunctiva pink. Sclera anicteric. Neck: Supple without lymphadenopathy. Abdomen: Soft, epigastric tenderness, nondistended with bowel sounds. No guarding or rigidity. Extremities: Normal skin color and turgor. No pedal edema Skin: No rashes, no jaundice Neurological: No focal deficits. Alert and oriented -3. - Labs CBC & Chem 7: 05/20/22 07:03 05/21/22 06:06 Labs: Abnormal Lab Results - Last 24 Hours (Table) 05/21/22 05/21/22 Range/Units 06:06 06:06 Potassium 3.4 L (3.5-5.5) mmol/L Anion Gap 9.40 L (10.00-18.00) mmol/L BUN 7.9 L (9.0-27.0) mg/dL Calcium 8.3 L (8.7-10.3) mg/dL Amylase 1416 H* (23-121) U/L Lipase >3000 H (14-63) U/L Assessment and Plan (1) Acute pancreatitis Narrative/Plan: 56-year-old female with a prior history of pancreatitis, alcohol related approximately 1 year ago presented to the emergency department with severe epigastric pain radiating to her back associated with nausea and vomiting. Workup showed elevation in amylase and lipase consistent with pancreatitis as well as a CT of the abdomen and pelvis reporting acute on chronic uncomplicated pancreatitis. Pain is improving at this time. Patient's denies any significant alcohol dependence or abuse. However states prior episode and this episode pancreatitis was followed from consumption of alcohol the day before. Triglycerides were normal at 70. No new medications. This LFTs are within normal limits. Likely etiology is alcohol induced pancreatitis, however we have to investigate other possible etiologies. Patient states she is not a daily drinker and no previous history of alcohol abuse. Will further investigated with SHYAM, IgG 4 and outpatient follow-up.. Discussed with patient importance of complete alcohol cessation, smoking cessation to decrease recurrent pancreatitis. Continue symptomatic treatment. We'll plan for outpatient follow-up for endoscopic ultrasound Current Visit: Yes Status: Acute Code(s): K85.90 - ACUTE PANCREATITIS WITHOUT NECROSIS OR INFECTION, UNSP SNOMED Code(s): 670332624 Plan: 1. Continue symptomatic and supportive care 2. Continue IV fluids 3. Pain medication as needed and try to wean patient from IV Dilaudid 4. Protonix 40 mg daily GI prophylaxis 5. Antiemetics as needed 6. Alcohol abstinence 7. Smoking cessation 8. AAdvance to low fat diet as tolerated 9. SHYAM, IGG4 ordered 10. Will plan for outpatient endoscopic ultrasound done at [facility] 11. Encourage ambulation 12. Will discharge for now, anticipate discharge in the next 24-48 hours Thank you for this consultation, we will continue to follow. Dr. Nadeem Alicea I agree with the dictator's note, documented as a scribe by Courtney George.
[2022-05-22] MEDS: SENNOSIDES 8.6 MG TAB PO SCH (15:23)
[2022-05-22] MEDS: IBUPROFEN 600 MG TAB PO SCH ×2 (17:22→20:31)
[2022-05-23] MEDS ORDERED: PANTOPRAZOLE 40 MG TABLET PO SCH (07:30)
[2022-05-23 08:17] VITALS: BP 126/76; PULSE 76; RESP 15; TEMP 98
[2022-05-23] MEDS: IBUPROFEN 600 MG TAB PO SCH (09:14)
[2022-05-23] MEDS: SENNOSIDES 8.6 MG TAB PO SCH (09:14)
[2022-05-23] MEDS: DOCUSATE 100 MG CAP PO SCH (09:14)
[2022-05-23] MEDS: HEPARIN SODIUM,PORCINE/PF 5,000 UNIT/0.5 ML SYRINGE SQ SCH ×2 (09:14→09:20)
--- NOTE | 2022-05-23 12:33 | P.DS ---
Providers Date of admission: 05/19/22 13:29 Expected date of discharge: 05/23/22 Attending physician: Fabi Chaparro MD Consults: 05/19/22 13:28 Consult Physician Urgent Consulting Provider: Karen Alicea Consult Reason/Comments: Acute pancreatitis Do you want consulting provider notified?: Yes [facility] Course: Discharge Diagnosis: Acute uncomplicated pancreatitis Constipation Chronic back pain secondary to osteoarthritis Hospital Course: 56-year-old female with history of chronic back pain presenting with acute abd ominal pain, nausea and vomiting. CT abdomen was acute on chronic complicated pancreatitis with no CBD dilatation. Patient was started on antiemetics, pain medications, and IV fluids. Her pain improved over the course of her hospitalization. She was able to tolerate oral diet. She has a history of prior episode of pancreatitis, which was attributed to alcohol use. However her current episode did not correlate with alcohol use. Autoimmune workup was done, SHYAM was negative, and IgG4 was normal. GI was also consulted, recommended outpatient endoscopic ultrasound at [facility]. Patient seen and examined at bedside. Vital signs reviewed and stable. General: nontoxic, no distress, appears at stated age Derm: warm, dry Head: atraumatic, normocephalic, symmetric Eyes: EOMI, no lid lag, anicteric sclera Mouth: no lip lesion, mucus membranes moist Cardiovascular: S1S2 reg, no murmur Lungs: CTA bilateral, no rhonchi, no rales , no accessory muscle use Abdominal: soft, nontender to palpation, no guarding, no appreciable organomegaly Ext: no gross muscle atrophy, no edema, no contractures Neuro: CN II-XI grossly intact, no focal neuro deficits Psych: Alert, oriented, appropriate affect A total of 35 minutes of time were spent preparing this complex discharge summary. Patient was discharged on 05/23/22 at 9:35. Patient Condition at Discharge: Fair Plan - Discharge Summary Discharge Rx Participant: No New Discharge Prescriptions: New Pantoprazole [Protonix] 40 mg PO AC-BRKFST #30 tab Sennosides [Senokot] 8.6 mg PO DAILY #30 tab Acetaminophen Tab [Tylenol] 650 mg PO Q6HR PRN #60 tab PRN Reason: Fever And/ Or Pain Continue Ibuprofen [Motrin Ib] 800 mg PO Q8H PRN PRN Reason: Pain Or Fever > 100.5 Discharge Medication List Ibuprofen [Motrin Ib] 800 mg PO Q8H PRN 05/19/22 [History] Acetaminophen Tab [Tylenol] 650 mg PO Q6HR PRN #60 tab 05/23/22 [Rx] Pantoprazole [Protonix] 40 mg PO AC-BRKFST #30 tab 05/23/22 [Rx] Sennosides [Senokot] 8.6 mg PO DAILY #30 tab 05/23/22 [Rx] Follow up Appointment(s)/Referral(s): Karen Alicea MD [STAFF PHYSICIAN] - 05/27/22 2:00 pm Brandon Ibarra DO [Primary Care Provider] - 05/27/22 9:20 am Patient Instructions/Handouts: Pancreatitis (GEN) Activity/Diet/Wound Care/Special Instructions: Follow up with GI within 1 week. Discharge Disposition: HOME SELF-CARE
--- NOTE | 2022-05-23 13:25 | P.PN ---
Subjective Progress Note Date: 05/23/22 Principal diagnosis: Acute pancreatitis This is a pleasant 56-year-old female who presented to the emergency department yesterday afternoon with complaints of severe upper abdominal pain, mid epigastric radiating to her back associated with nausea and vomiting. She has no significant past medical history other than previous pancreatitis. She is a current every day smoker. She was evaluated in the emergency department noted to have elevation in her amylase at 4107 and lipase greater than 20,000. She had a CT of the abdomen and pelvis showing acute on chronic uncomplicated pancreatitis, no CBD dilation. Patient's states pain was 10 out of 10 on admission, it has now improved. She has no nausea or vomiting at this time. She was tolerating some ice chips yesterday evening. Patient admits to previous pancreatitis approximately one year ago. Alcohol related. Patient denies any significant alcohol dependence however states Thursday night she did have a few beers prior to onset of pain yesterday. She denies any chest pain, shortness of breath, fevers, chills. Again abdominal pain improved about a 6 out of 10, no associated nausea or vomiting at this time or diarrhea. 05/21/2022: Patient seen and examined is follow-up for acute pancreatitis. States that abdominal pain is definitely better than Thursday however still not feeling that well. No nausea or vomiting. She is tolerating clear liquid diet. Amylase 1416 lipase greater than 3000. She denies any bowel movement since her hospitalization. She says she has been up and ambulating in her room. The triglycerides 70, SHYAM and IgG4 pending 05/22/2022: Patient seen and examined is follow-up for acute pancreatitis. States she ate her breakfast this morning which is full liquids and following started having some epigastric discomfort again. She's having nausea but no vomiting. Repeat lipase 11,000. She's afebrile. 05/23/2022: Patient was seen and examined at the [facility]. She states abdominal pain has improved. She is tolerating a low-fat diet. She is not using any IV pain medication. Patient is requesting to go home. No nausea or vomiting. Lipase trending down. SHYAM negative, IgG4 negative Objective - Vital Signs Vital signs: Vital Signs Temp 98.0 F 05/23/22 08:00 Pulse 76 05/23/22 08:00 Resp 15 05/23/22 08:00 BP 126/76 05/23/22 08:00 Pulse Ox 96 05/23/22 08:00 FiO2 Intake & Output 05/22/22 05/23/22 05/23/22 18:59 06:59 18:59 Intake Total 400 Balance 400 Intake: Oral 400 Other: Voiding Method Toilet # Voids 3 2 - Exam General appearance: The patient is alert, oriented, appears in no acute distr ess. HET: Head is normocephalic and atraumatic. Conjunctiva pink. Sclera anicteric. Neck: Supple without lymphadenopathy. Abdomen: Soft, minimal epigastric tenderness, nondistended with bowel sounds. No guarding or rigidity. Extremities: Normal skin color and turgor. No pedal edema Skin: No rashes, no jaundice Neurological: No focal deficits. Alert and oriented -3. - Labs CBC & Chem 7: 05/20/22 07:03 05/21/22 06:06 Labs: Abnormal Lab Results - Last 24 Hours (Table) 05/21/22 05/22/22 Range/Units 06:06 08:31 Lipase 18808 H (23-300) U/L IgG2 233.60 L (241.80-700.30) mg/dL IgG3 20.80 L (21.82-176.00) mg/dL Assessment and Plan (1) Acute pancreatitis Narrative/Plan: 56-year-old female with a prior history of pancreatitis, alcohol related approximately 1 year ago presented to the emergency department with severe epigastric pain radiating to her back associated with nausea and vomiting. Workup showed elevation in amylase and lipase consistent with pancreatitis as well as a CT of the abdomen and pelvis reporting acute on chronic uncomplicated pancreatitis. Pain is improving at this time. Patient's denies any significant alcohol dependence or abuse. However states prior episode and this episode pancreatitis was followed from consumption of alcohol the day before. Triglycerides were normal at 70. No new medications. This LFTs are within normal limits. Likely etiology is alcohol induced pancreatitis, however we have to investigate other possible etiologies. Patient states she is not a daily drinker and no previous history of alcohol abuse. Will further investigated with SHYAM, IgG 4 and outpatient follow-up.. Discussed with patient importance of complete alcohol cessation, smoking cessation to decrease recurrent pancreatitis. Continue symptomatic treatment. We'll plan for outpatient follow-up for endoscopic ultrasound Current Visit: Yes Status: Acute Code(s): K85.90 - ACUTE PANCREATITIS WITHOUT NECROSIS OR INFECTION, [facility] [place]OM[facility] Code(s): 285491088 Plan: 1. Continue symptomatic and supportive care 2. Encourage ambulation 4. Protonix 40 mg daily GI prophylaxis 5. Antiemetics as needed 6. Alcohol abstinence 7. Smoking cessation 8. Continue low-fat diet 9. Patient to follow-up with Dr. Alicea next week. 10. Will plan for outpatient endoscopic ultrasound done at [facility] Thank you for this consultation, and pain continues to improve patient may be discharged home later today. Dr. Nadeem Alicea I agree with the dictator's note, documented as a scribe by Courtney George.
== END 2022-05-23 16:10 | disposition home or self-care (01) | DRG 440 ==
LOC: EC 10:59 → 4SSUR 13:29
PROVIDERS: ADMIT Internal Medicine; ATTEND Internal Medicine
DX: K85.90 Acute pancreatitis without necrosis or infection, unspecified (principal); K86.1 Other chronic pancreatitis; M19.90 Unspecified osteoarthritis, unspecified site; G43.909 Migraine, unspecified, not intractable, without status migrainosus; G89.29 Other chronic pain; K59.00 Constipation, unspecified; F17.210 Nicotine dependence, cigarettes, uncomplicated; M47.9 Spondylosis, unspecified; Z88.0 Allergy status to penicillin; Z88.2 Allergy status to sulfonamides; Z71.6 Tobacco abuse counseling; Z71.41 Alcohol abuse counseling and surveillance of alcoholic; Z98.51 Tubal ligation status
CPT/HCPCS: 36415; 74177; 80048; 80053; 80061; 80320; 82150; 82787; 83036; 83605; 83690; 83735; 84443; 85025; 86038; 86301; 96361; 96374; 96375; 96376; 99285

== ENCOUNTER 2022-06-02 07:05 | Inpatient (IN) | payer OTHER ==
[2022-06-02] MEDS ORDERED: ONDANSETRON 4 MG/2 ML VIAL IVP STA (07:51)
[2022-06-02] MEDS ORDERED: HYDROmorphone 0.5 MG/0.5 ML SYRINGE IVP STA (07:51)
[2022-06-02] MEDS ORDERED: KETOROLAC 15 MG/ML 1 ML VIAL IVP STA (07:51)
--- NOTE | 2022-06-02 07:54 | ED ---
Abdominal Pain HPI - General Source: patient, RN notes reviewed Mode of arrival: wheelchair Limitations: no limitations <Brandon Martino - Last Filed: 06/02/22 09:37> <Mike Cortez - Last Filed: 06/02/22 11:16> - General Chief Complaint: Abdominal Pain Stated Complaint: Abdominal pain Time Seen by Provider: 06/02/22 07:11 - History of Present Illness Initial Comments: 56-year-old female presents emergency Department with chief complaint of abdominal pain. Patient states started Thursday night after eating dinner. Patient states has increased by his record all she's had nausea without vomiting no change in bowel habits. Patient had recent hospitalization for acute pancreatitis. She denies any alcohol intake since her last admission. Patient denies any dysuria no chest pain shortness breath currently. (Brandon Martino) - Related Data Home Medications Medication Instructions Recorded Confirmed Ibuprofen [Motrin Ib] 800 mg PO Q8H PRN 05/19/22 06/02/22 Dicyclomine [Bentyl] 10 mg PO TID 06/02/22 06/02/22 Previous Rx's Medication Instructions Recorded Acetaminophen Tab [Tylenol] 650 mg PO Q6HR PRN #60 tab 05/23/22 Pantoprazole [Protonix] 40 mg PO AC-BRKFST #30 tab 05/23/22 Allergies Allergy/AdvReac Type Severity Reaction Status Date / Time Penicillins Allergy Severe Anaphylaxis Verified 06/02/22 09:56 Sulfa (Sulfonamide Allergy Rash/Hives Verified 06/02/22 09:56 Antibiotics) Review of Systems ROS Other: All systems not noted in ROS Statement are negative. <Brandon Martino - Last Filed: 06/02/22 09:37> ROS Other: All systems not noted in ROS Statement are negative. <Mike Cortez - Last Filed: 06/02/22 11:16> ROS Statement: Those systems with pertinent positive or pertinent negative responses have been documented in the HPI. Past Medical History Past Medical History: Osteoarthritis (OA) Additional Past Medical History / Comment(s): migraines, pancreatitis History of Any Multi-Drug Resistant Organisms: None Reported Past Surgical History: Orthopedic Surgery, Tubal Ligation, Uterine Ablation Additional Past Surgical History / Comment(s): left knee surgery age 8, Past Anesthesia/Blood Transfusion Reactions: No Reported Reaction Past Psychological History: No Psychological Hx Reported Smoking Status: Current every day smoker Past Alcohol Use History: None Reported Past Drug Use History: None Reported - Past Family History Mother Family Medical History: No Reported History <Brandon Martino - Last Filed: 06/02/22 09:37> General Exam Limitations: no limitations General appearance: alert, in no apparent distress Head exam: Present: atraumatic, normocephalic, normal inspection Eye exam: Present: normal appearance, PERRL, EOMI. Absent: scleral icterus, conjunctival injection, periorbital swelling ENT exam: Present: normal exam, normal oropharynx, mucous membranes moist Neck exam: Present: normal inspection, full ROM. Absent: tenderness, meningismus, lymphadenopathy Respiratory exam: Present: normal lung sounds bilaterally. Absent: respiratory distress, wheezes, rales, rhonchi, stridor Cardiovascular Exam: Present: regular rate, normal rhythm, normal heart sounds. Absent: systolic murmur, diastolic murmur, rubs, gallop, clicks GI/Abdominal exam: Present: soft, tenderness, normal bowel sounds. Absent: distended, guarding, rebound, rigid Back exam: Absent: CVA tenderness (R), CVA tenderness (L) Neurological exam: Present: alert, oriented X3 Skin exam: Present: warm, dry, intact, normal color. Absent: rash <Brandon Martino - Last Filed: 06/02/22 09:37> Course Vital Signs 06/02/22 07:11 Temperature 98 F Pulse Rate 84 Respiratory 16 Rate Blood Pressure 151/85 O2 Sat by Pulse 100 Oximetry Medical Decision Making - Lab Data Result diagrams: 06/02/22 07:42 06/02/22 07:42 <Brandon Martino - Last Filed: 06/02/22 09:37> - Lab Data Result diagrams: 06/02/22 07:42 06/02/22 07:42 <Mike Cortez - Last Filed: 06/02/22 11:16> - Medical Decision Making 56-year-old presented for abdominal pain. Patient does have a history of pancreatitis, amylase and lipase are significant for elevated. Patient be admitted for IV fluid station, pain control. (Brandon Martino) 56-year-old female was seen for abdominal pain history of pancreatitis she did have significantly elevated amylase and lipase. She was admitted to internal medicine for IV fluids and symptomatic control. (Mike Cortez) - Lab Data Lab Results 06/02/22 06/02/22 Range/Units 07:42 07:42 WBC 10.3 (3.8-10.6) k/uL RBC 4.42 (3.80-5.40) m/uL Hgb 14.7 (11.4-16.0) gm/dL Hct 41.6 (34.0-46.0) % MCV 94.1 (80.0-100.0) fL MCH 33.4 (25.0-35.0) pg MCHC 35.5 (31.0-37.0) g/dL RDW 12.5 (11.5-15.5) % Plt Count 208 (150-450) k/uL MPV 8.5 Neutrophils % 83 % Lymphocytes % 9 % Monocytes % 5 % Eosinophils % 2 % Basophils % 0 % Neutrophils # 8.5 H (1.3-7.7) k/uL Lymphocytes # 0.9 L (1.0-4.8) k/uL Monocytes # 0.5 (0-1.0) k/uL Eosinophils # 0.2 (0-0.7) k/uL Basophils # 0.0 (0-0.2) k/uL Sodium 139 (137-145) mmol/L Potassium 3.5 (3.5-5.1) mmol/L Chloride 102 (98-107) mmol/L Carbon Dioxide 24 (22-30) mmol/L Anion Gap 13 mmol/L BUN 15 (7-17) mg/dL Creatinine 0.65 (0.52-1.04) mg/dL Est GFR (CKD-EPI)AfAm >90 (>60 ml/min/1.73 sqM) Est GFR (CKD-EPI)NonAf >90 (>60 ml/min/1.73 sqM) Glucose 119 H (74-99) mg/dL Calcium 9.5 (8.4-10.2) mg/dL Magnesium 1.8 (1.6-2.3) mg/dL Total Bilirubin 1.0 (0.2-1.3) mg/dL AST 27 (14-36) U/L ALT 15 (4-34) U/L Alkaline Phosphatase 87 (38-126) U/L Total Protein 7.8 (6.3-8.2) g/dL Albumin 4.8 (3.5-5.0) g/dL Amylase 9913 H* (30-110) U/L Lipase >17901 H (23-300) U/L Serum Alcohol <10 mg/dL Disposition Time of Disposition: 09:37 <Brandon Martino - Last Filed: 06/02/22 09:37> <Mike Cortez - Last Filed: 06/02/22 11:16> Clinical Impression: Acute pancreatitis Disposition: ADMITTED IP TO THIS HOSP Condition: Fair
[2022-06-02 08:16] LABS: Basophils % (A) 0 %; Eosinophils # (A) 0.2 k/uL (0-0.7); Eosinophils % (A) 2 %; HCT 41.6 % (34.0-46.0); HGB 14.7 gm/dL (11.4-16.0); Lymphocytes # (A) 0.9 k/uL (1.0-4.8); Lymphocytes % (A) 9 %; MCH 33.4 pg (25.0-35.0); MCHC 35.5 g/dL (31.0-37.0); MCV 94.1 fL (80.0-100.0); Mean Platelet Volume 8.5; Monocytes # (A) 0.5 k/uL (0-1.0); Monocytes % (A) 5 %; Neutrophils # (A) 8.5 k/uL (1.3-7.7); Neutrophils % (A) 83 %; Platelet Count 208 k/uL (150-450); RBC 4.42 m/uL (3.80-5.40); RDW 12.5 % (11.5-15.5); WBC 10.3 k/uL (3.8-10.6)
[2022-06-02 08:27] LABS: ALT 15 U/L (4-34); AST 27 U/L (14-36); African American GFR (CKD) >90 (>60 ml/min/1.73 sqM); Albumin 4.8 g/dL (3.5-5.0); Alcohol <10 mg/dL; Alkaline Phosphatase 87 U/L (38-126); Anion Gap 13 mmol/L; Blood Urea Nitrogen 15 mg/dL (7-17); Calcium 9.5 mg/dL (8.4-10.2); Carbon Dioxide 24 mmol/L (22-30); Chloride 102 mmol/L (98-107); Glucose 119 mg/dL (74-99); Magnesium 1.8 mg/dL (1.6-2.3); Non-African American GFR(CKD) >90 (>60 ml/min/1.73 sqM); Potassium 3.5 mmol/L (3.5-5.1); Sodium 139 mmol/L (137-145); Total Protein 7.8 g/dL (6.3-8.2)
[2022-06-02 09:09] LABS: Amylase 9913 U/L (30-110); Lipase >20000 U/L (23-300)
[2022-06-02] MEDS ORDERED: KETOROLAC 15 MG/ML 1 ML VIAL IVP PRN (09:38)
[2022-06-02] MEDS ORDERED: HYDROmorphone 0.5 MG/0.5 ML SYRINGE IVP PRN (09:38)
[2022-06-02] MEDS ORDERED: NALOXONE 0.4 MG/ML 1 ML VIAL IV PRN (09:38)
[2022-06-02] MEDS ORDERED: ONDANSETRON 4 MG/2 ML VIAL IVP PRN (09:38)
[2022-06-02] MEDS: SODIUM CHLORIDE 0.9% 1,000 ML IV SCH ×2 (09:49→19:40)
[2022-06-02] MEDS: HYDROmorphone 1 MG/ML 1 ML SYRINGE IVP PRN ×3 (10:19→19:40)
[2022-06-02] MEDS ORDERED: ACETAMINOPHEN TAB 325 MG TAB PO PRN (10:34)
[2022-06-02] MEDS ORDERED: IOPAMIDOL CONTRAST (ORAL USE) VIAL PO PRN (15:02)
--- NOTE | 2022-06-02 15:02 | P.HPIM ---
History of Present Illness H&P Date: 06/02/22 Chief Complaint: Abdominal pain 56-year-old woman with a history of alcohol abuse, recurrent pancreatitis, osteoarthritis presented for abdominal pain. Patient says that she started experiencing abdominal pain yesterday with associated nausea, similar in nature to her previous bouts of pancreatitis. She was hospitalized approximately 2 weeks ago for similar issue at which time she had been consuming significant amounts of alcohol. Since that time she has been without any EtOH. She does report that she smokes. Her abdominal pain is associated with nausea, but no vo miting. She denies fevers, chills, chest pain, palpitations, syncopal, or syncope, cough, dyspnea, dysuria, dyschezia, constipation, numbness/weakness. She does report diarrhea. In the emergency room, patient was afebrile, 151/85, heart rate 84, 100% on room air. CBC is unremarkable. Chemistries are unremarkable. Liver function tests are unremarkable. Amylase is 9913, lipase is greater than 20,000. Alcohol level is less than 10. No imaging on this admission to review. All Systems reviewed and pertinent positives and negatives noted in HPI, all other symptoms are negative Gen: in no apparent distress, resting comfortably in bed Eyes: PERRL, no scleral injection or icterus HENT: normocephalic, atraumatic, good hearing acuity, moist mucous membranes Neck: no tracheal deviation, full range of motion Resp: good air exchange, breathing comfortably with no accessory muscle use, no tactile fremitus CVS: good distal perfusion x 4, no pitting edema GI: soft, tenderness to palpation in the left upper quadrant, epigastrium, ND, no hepatosplenomegaly : no suprapubic tenderness, no CVAT, rai catheter not present MSK: no clubbing, no cyanosis, no noted contractures of extremities Skin: no noted rashes, petechiae; temperature of skin is appropriate Neuro: moving all extremities without signs of weakness, CN II-XII intact Psych: cooperative, euthymic mood, insight and judgment intact Labs and imaging reviewed as above Assessment/plan: Acute pancreatitis -Admit to inpatient, telemetry -Nothing by mouth -IV fluids -Pain control -CT abdomen/pelvis History of alcohol abuse Active smoker -Cessation counseling advised -Nicotine patch if requested -Patient as well outside window for withdrawal Osteoarthritis -Tylenol when necessary Patient is full code Heparin 3 times a day for DVT prophylaxis Past Medical History Past Medical History: Osteoarthritis (OA) Additional Past Medical History / Comment(s): migraines, pancreatitis History of Any Multi-Drug Resistant Organisms: None Reported Past Surgical History: Orthopedic Surgery, Tubal Ligation, Uterine Ablation Additional Past Surgical History / Comment(s): left knee surgery age 8, Past Anesthesia/Blood Transfusion Reactions: No Reported Reaction Past Psychological History: No Psychological Hx Reported Smoking Status: Current every day smoker Past Alcohol Use History: None Reported Past Drug Use History: None Reported - Past Family History Mother Family Medical History: No Reported History Medications and Allergies Home Medications Medication Instructions Recorded Confirmed Type Ibuprofen [Motrin Ib] 800 mg PO Q8H PRN 05/19/22 06/02/22 History Acetaminophen Tab [Tylenol] 650 mg PO Q6HR PRN #60 tab 05/23/22 06/02/22 Rx Pantoprazole [Protonix] 40 mg PO AC-BRKFST #30 tab 05/23/22 06/02/22 Rx Dicyclomine [Bentyl] 10 mg PO TID 06/02/22 06/02/22 History Allergies Allergy/AdvReac Type Severity Reaction Status Date / Time Penicillins Allergy Severe Anaphylaxis Verified 06/02/22 09:56 Sulfa (Sulfonamide Allergy Rash/Hives Verified 06/02/22 09:56 Antibiotics) Physical Exam Osteopathic Statement: *. No significant issues noted on an osteopathic structural exam other than those noted in the History and Physical/Consult. Vitals: Vital Signs Temp Pulse Resp BP Pulse Ox 06/02/22 10:15 72 16 122/75 97 06/02/22 07:11 98 F 84 16 151/85 100 Intake and Output 06/01/22 06/02/22 06/02/22 22:59 06:59 14:59 Other: Weight 58.06 kg Results CBC & Chem 7: 06/02/22 07:42 06/02/22 07:42 Labs: Abnormal Lab Results - Last 24 Hours (Table) 06/02/22 06/02/22 Range/Units 07:42 07:42 Neutrophils # 8.5 H (1.3-7.7) k/uL Lymphocytes # 0.9 L (1.0-4.8) k/uL Glucose 119 H (74-99) mg/dL Amylase 9913 H* (30-110) U/L Lipase >73310 H (23-300) U/L
[2022-06-02] MEDS: DICYCLOMINE 10 MG CAP PO SCH ×2 (15:16→22:32)
[2022-06-02] MEDS: ONDANSETRON 4 MG/2 ML VIAL IVP PRN (15:17)
--- NOTE | 2022-06-02 16:28 | CT ---
EXAMINATION TYPE: CT abdomen pelvis w con DATE OF EXAM: 06/02/2022 COMPARISON: 05/19/2022 INDICATION: pancreatitis DLP: 611 mGycm, Automated exposure control for dose reduction was used. CONTRAST: 100 mL of Isovue 370. Study performed without Oral Contrast TECHNIQUE: Axial images were obtained from above the diaphragm to the pubic rami in the axial plane a t 5 mm thick sections. Reconstructed images are reviewed on the computer in the coronal plane. FINDINGS: Limited CT sections are obtained the lung bases. Some compressive atelectasis may be in the posterio r right lung base. CT ABDOMEN: Liver: Tiny cyst may be within the mid right lobe liver. Spleen: Normal Pancreas: Multiple calcifications are within the pancreas. Pancreatic duct is somewhat prominent. Will e mild peripancreatic fluid and/or inflammatory change may be present. Findings could be compatible w ith chronic pancreatitis. Some superimposed acute pancreatitis should be considered. Adrenal glands: The adrenal glands are normal. Gallbladder: Normal Kidneys: No masses are evident. No hydronephrosis is present. No cysts are present. Delayed images were obtained through the kidneys, which remain unremarkable. Aorta: Vascular calcification is within the aorta. Inferior vena cava: Normal. CT PELVIS: Loops of bowel within the abdomen and pelvis are normal. This study is lateral contrast limiting bowel evaluation. Appendix: Not identified. No dilated tubular structure or inflammatory changes evident. Urinary bladder: Thickened bladder underwood. Genitourinary structures: Uterus appears normal. Adnexa are normal. Osseous structures: No suspicious lytic or sclerotic lesions. IMPRESSIONS: 1. Chronic pancreatitis. Some minimal fluid and/or adjacent inflammatory change may be present. Cons ider some superimposed acute pancreatitis. 2. Thickened urinary bladder wall.
[2022-06-03] MEDS: HYDROmorphone 1 MG/ML 1 ML SYRINGE IVP PRN ×6 (00:22→20:38)
[2022-06-03] MEDS: PANTOPRAZOLE 40 MG TABLET PO SCH (08:10)
[2022-06-03] MEDS: DICYCLOMINE 10 MG CAP PO SCH ×3 (08:10→20:37)
[2022-06-03] MEDS: SODIUM CHLORIDE 0.9% 1,000 ML IV SCH ×2 (08:11→17:00)
[2022-06-03] MEDS ORDERED: PANTOPRAZOLE 40 MG/10 ML VIAL IVP SCH (09:00)
--- NOTE | 2022-06-03 14:15 | P.PN ---
Subjective Progress Note Date: 06/03/22 56-year-old woman with a history of alcohol abuse, recurrent pancreatitis, osteoarthritis presented for abdominal pain. Patient says that she started experiencing abdominal pain yesterday with associated nausea, similar in nature to her previous bouts of pancreatitis. She was hospitalized approximately 2 weeks ago for similar issue at which time she had been consuming significant amounts of alcohol. Since that time she has been without any EtOH. In the emergency room, patient was afebrile, 151/85, heart rate 84, 100% on room air. CBC is unremarkable. Chemistries are unremarkable. Liver function tests are unremarkable. Amylase is 9913, lipase is greater than 20,000. Alcohol level is less than 10. No imaging on this admission to review. CT AP showed acute on chronic pancreatitis. Patient was placed nothing by mouth. She was given Dilaudid as needed for pain and started on IV hydration. Patient was seen and examined. Patient reports continued abdominal pain slightly improved with pain medication. Pain is 7 out of 10 in severity. She reports nausea but no vomiting. She denies any chest pain, shortness breath or palpitations. No fever or chills. General: non toxic, no distress, appears at stated age Derm: warm, dry Head: atraumatic, normocephalic, symmetric Eyes: EOMI, no lid lag, anicteric sclera Mouth: no lip lesion, mucus membranes moist Cardiovascular: S1S2 reg, no murmur Lungs: CTA bilateral, no rhonchi, no rales , no accessory muscle use Abdominal: soft, tenderness to palpation in the epigastric area without rebound, no guarding, no appreciable organomegaly Ext: no gross muscle atrophy, no edema, no contractures Neuro: no focal neuro deficits Psych: Alert, oriented, appropriate affect #Acute on chronic pancreatitis #History of alcohol abuse #Smoker Patient was continued on Dilaudid as needed for pain. Continue normal saline at 100 mL/h. Zofran as needed for nausea and vomiting. Start clear liquid diet and advance as tolerated. Patient has not consumed any alcohol since her previous admission. No signs of active withdrawal. Continue to monitor. Patient has been offered a nicotine patch. Heparin as needed for DVT prophylaxis. Patient would like to be FULL CODE. Objective - Vital Signs Vital signs: Vital Signs Temp 98.3 F 06/03/22 08:00 Pulse 80 06/03/22 08:00 Resp 18 06/03/22 08:00 BP 103/63 06/03/22 08:00 Pulse Ox 96 06/03/22 08:00 FiO2 Intake & Output 06/02/22 06/03/22 06/03/22 18:59 06:59 18:59 Weight 58.06 kg Other: # Voids 2 - Labs CBC & Chem 7: 06/02/22 07:42 06/02/22 07:42
[2022-06-03] MEDS: ONDANSETRON 4 MG/2 ML VIAL IVP PRN (16:26)
[2022-06-03] MEDS: HEPARIN SODIUM,PORCINE/PF 5,000 UNIT/0.5 ML SYRINGE SQ SCH (20:37)
[2022-06-04] MEDS: HYDROmorphone 1 MG/ML 1 ML SYRINGE IVP PRN ×3 (04:30→20:28)
[2022-06-04] MEDS: SODIUM CHLORIDE 0.9% 1,000 ML IV SCH ×2 (04:32→12:25)
[2022-06-04] MEDS: DICYCLOMINE 10 MG CAP PO SCH ×3 (08:30→20:27)
[2022-06-04] MEDS: HEPARIN SODIUM,PORCINE/PF 5,000 UNIT/0.5 ML SYRINGE SQ SCH ×2 (08:30→20:27)
[2022-06-04] MEDS: PANTOPRAZOLE 40 MG TABLET PO SCH (08:30)
--- NOTE | 2022-06-04 16:37 | P.PN ---
Subjective Progress Note Date: 06/04/22 56-year-old woman with a history of alcohol abuse, recurrent pancreatitis, osteoarthritis presented for abdominal pain. Patient says that she started experiencing abdominal pain yesterday with associated nausea, similar in nature to her previous bouts of pancreatitis. She was hospitalized approximately 2 weeks ago for similar issue at which time she had been consuming significant amounts of alcohol. Since that time she has been without any EtOH. In the emergency room, patient was afebrile, 151/85, heart rate 84, 100% on room air. CBC is unremarkable. Chemistries are unremarkable. Liver function tests are unremarkable. Amylase is 9913, lipase is greater than 20,000. Alcohol level is less than 10. No imaging on this admission to review. CT AP showed acute on chronic pancreatitis. Patient was placed nothing by mouth. She was given Dilaudid as needed for pain and started on IV hydration. Patient was seen and examined. Patient reports continued abdominal pain slightly improved with pain medication. Pain is better controlled today. Tolerating CLD. She denies any chest pain, shortness breath or palpitations. No fever or chills. General: non toxic, no distress, appears at stated age Derm: warm, dry Head: atraumatic, normocephalic, symmetric Eyes: EOMI, no lid lag, anicteric sclera Mouth: no lip lesion, mucus membranes moist Cardiovascular: S1S2 reg, no murmur Lungs: CTA bilateral, no rhonchi, no rales , no accessory muscle use Abdominal: soft, tenderness to palpation in the epigastric area without rebound, no guarding, no appreciable organomegaly Ext: no gross muscle atrophy, no edema, no contractures Neuro: no focal neuro deficits Psych: Alert, oriented, appropriate affect #Acute on chronic pancreatitis #History of alcohol abuse #Smoker Patient was continued on Dilaudid as needed for pain. Continue normal saline at 100 mL/h. Zofran as needed for nausea and vomiting. Full liquid diet and advance as tolerated. Patient has not consumed any alcohol since her previous admission. No signs of active withdrawal. Continue to monitor. Patient has been offered a nicotine patch. Heparin as needed for DVT prophylaxis. Patient would like to be FULL CODE. Objective - Vital Signs Vital signs: Vital Signs Temp 98.1 F 06/04/22 12:05 Pulse 58 L 06/04/22 12:05 Resp 18 06/04/22 12:05 BP 137/83 06/04/22 12:05 Pulse Ox 96 06/04/22 12:05 FiO2 Intake & Output 06/03/22 06/04/22 06/04/22 18:59 06:59 18:59 Intake Total 1200 1200 Balance 1200 1200 Intake: IV 1200 Sodium Chloride 0.9% 1, 1200 000 ml @ 100 mls/hr IV . Q10H [facility] Rx#:[id number] Intake, IV Titration 1200 Amount Sodium Chloride 0.9% 1, 1200 000 ml @ 100 mls/hr IV . Q10H [facility] Rx#:[id number] - Labs CBC & Chem 7: 06/02/22 07:42 06/02/22 07:42
[2022-06-05] MEDS: SODIUM CHLORIDE 0.9% 1,000 ML IV SCH ×2 (00:02→09:02)
[2022-06-05] MEDS: PANTOPRAZOLE 40 MG TABLET PO SCH (07:39)
[2022-06-05] MEDS: HEPARIN SODIUM,PORCINE/PF 5,000 UNIT/0.5 ML SYRINGE SQ SCH (08:59)
[2022-06-05] MEDS: HYDROmorphone 1 MG/ML 1 ML SYRINGE IVP PRN (09:00)
[2022-06-05] MEDS: DICYCLOMINE 10 MG CAP PO SCH ×2 (09:00→16:11)
[2022-06-05 09:30] LABS: HCT 31.5 % (37.2-46.3); HGB 10.5 g/dL (12.0-15.0); MCH 31.4 pg (27.0-32.0); MCHC 33.3 g/dL (32.0-37.0); MCV 94.3 fL (80.0-97.0); Mean Platelet Volume 11.5 fL (9.5-12.2); NRBC Per 100 WBC 0 /100 WBCS (0.0-0.0); Platelet Count 170 X 10*3/uL (140-440); RBC 3.34 X 10*6/uL (4.10-5.20); WBC 4.78 X 10*3/uL (4.50-10.00)
[2022-06-05 10:08] LABS: African American GFR (CKD) 117.3 (60.0-200.0); Anion Gap 11.1 mmol/L (10.00-18.00); Calcium 8.6 mg/dL (8.7-10.3); Carbon Dioxide 25.9 mmol/L (20.0-27.5); Non-African American GFR(CKD) 101.2 (60.0-200.0); Potassium 3.5 mmol/L (3.5-5.5)
[2022-06-05] MEDS ORDERED: oxyCODONE-APAP 10-325MG 1 EACH TAB PO PRN (11:16)
--- NOTE | 2022-06-05 11:49 | P.DS ---
Providers Date of admission: 06/02/22 09:19 Expected date of discharge: 06/05/22 Attending physician: Jose Babcock MD Primary care physician: [facility] Course: 56-year-old woman with a history of alcohol abuse, recurrent pancreatitis, osteoarthritis presented for abdominal pain. Patient says that she started experiencing abdominal pain yesterday with associated nausea, similar in nature to her previous bouts of pancreatitis. She was hospitalized approximately 2 weeks ago for similar issue at which time she had been consuming significant amounts of alcohol. Since that time she has been without any EtOH. In the emergency room, patient was afebrile, 151/85, heart rate 84, 100% on room air. CBC is unremarkable. Chemistries are unremarkable. Liver function tests are unremarkable. Amylase is 9913, lipase is greater than 20,000. Alcohol level is less than 10. No imaging on this admission to review. CT AP showed acute on chronic pancreatitis. Patient was placed nothing by mouth. She was given Dilaudid as needed for pain and started on IV hydration. Her diet was advanced. She was eventually transitioned off of Dilaudid and started on Percocet. Pertinent studies include CTAP. Patient was seen and examined. No acute events overnight. Patient able to tolerate full liquid diet. She reports well-controlled pain but received Dilaudid this morning. General: non toxic, no distress, appears at stated age Derm: warm, dry Head: atraumatic, normocephalic, symmetric Eyes: EOMI, no lid lag, anicteric sclera Mouth: no lip lesion, mucus membranes moist Cardiovascular: S1S2 reg, no murmur Lungs: CTA bilateral, no rhonchi, no rales , no accessory muscle use Abdominal: soft, tenderness to palpation in the epigastric area without rebound, no guarding, no appreciable organomegaly Ext: no gross muscle atrophy, no edema, no contractures Neuro: no focal neuro deficits Psych: Alert, oriented, appropriate affect Discharge diagnosis: #Acute on chronic pancreatitis #History of alcohol abuse #Smoker This complex discharge took about 35 minutes to complete. Patient Condition at Discharge: Stable Plan - Discharge Summary New Discharge Prescriptions: No Action Ibuprofen [Motrin Ib] 800 mg PO Q8H PRN PRN Reason: Pain Or Fever > 100.5 Pantoprazole [Protonix] 40 mg PO AC-BRKFST #30 tab Acetaminophen Tab [Tylenol] 650 mg PO Q6HR PRN #60 tab PRN Reason: Fever And/ Or Pain Dicyclomine [Bentyl] 10 mg PO TID Discharge Medication List Ibuprofen [Motrin Ib] 800 mg PO Q8H PRN 05/19/22 [History] Acetaminophen Tab [Tylenol] 650 mg PO Q6HR PRN #60 tab 05/23/22 [Rx] Pantoprazole [Protonix] 40 mg PO AC-BRKFST #30 tab 05/23/22 [Rx] Dicyclomine [Bentyl] 10 mg PO TID 06/02/22 [History] Follow up Appointment(s)/Referral(s): Brandon Ibarra DO [Primary Care Provider] - 1-2 days
[2022-06-05 12:18] VITALS: BP 114/72; PULSE 62; RESP 18; TEMP 98.2
--- NOTE | 2022-06-07 11:07 | CDI ---
Documentation Clarification Form Date: 06/07/2022 10:58:41 AM From: Tracie Joy Phone: Admit Date: 06/02/2022 09:19:00 AM Patient Name: Alissa Moreno Visit Number: [id number] Discharge Date: 06/05/2022 05:00:00 PM ATTENTION: The Clinical Documentation Specialists (CDI) and [facility] Coding Staff appreciate your assistance in clarifying documentation. Please respond to the clarification below the line at the bottom and electronically sign. The CDI & [facility] Coding staff will review the response and follow-up if needed. Please note: Queries are made part of the Legal Health Record. If you have any questions, please contact the author of this message via ITS. Dr. Darci Irene Acute on Chronic Pancreatitis is documented per ED Note. Additional clarification regarding the etiology and acuity of pancreatitis is requested. History/risk factors: 56yo F, Acute on chronic pancreatitis, alcohol abuse (none in 2 wks.), smoker Clinical Indicators: Radiology: Chronic pancreatitis. Some minimal fluid and/or adjacent inflammatory change may be present. Consider some superimposed acute pancreatitis. Amylase 9913 H* (30-110) U/L Lipase >49878 H (23-300) U/L Treatment: Patient was placed nothing by mouth. She was given Dilaudid as needed for pain and started on IV hydration. Her diet was advanced. She was eventually transitioned off of Dilaudid and started on Percocet. Please clarify the etiology of the pancreatitis, if known: [ ] Alcohol induced pancreatitis [ ] Other, please specify [ ] Unable to determine (Template Last Revised: October 2020) Chronic pancreatitis from ETOH abuse, now acute (former drinker) MTDD
== END 2022-06-05 17:00 | disposition home or self-care (01) | DRG 440 ==
LOC: EC 07:05 → 5NMEDONC 09:19
PROVIDERS: ADMIT Internal Medicine; ATTEND Internal Medicine
DX: K85.90 Acute pancreatitis without necrosis or infection, unspecified (principal); F10.11 Alcohol abuse, in remission; K86.1 Other chronic pancreatitis; F17.210 Nicotine dependence, cigarettes, uncomplicated; M19.90 Unspecified osteoarthritis, unspecified site; Z79.899 Other long term (current) drug therapy; Z88.0 Allergy status to penicillin; Z88.2 Allergy status to sulfonamides; Z28.310 Unvaccinated for COVID-19
CPT/HCPCS: 36415; 74177; 80048; 80053; 80320; 82150; 83690; 83735; 85025; 85027; 96374; 96375; 96376; 99285

== ENCOUNTER 2023-06-09 11:01 | Day surgery (SDC) | payer OTHER ==
[~2023-06-09 11:01] MED LIST: LACTATED RINGERS 1,000 ML IV SCH; LIDOCAINE 1% (10MG/ML) FOR IV START INTRADERMA PRN
[2023-06-09 11:38] VITALS: TEMP 98.3
[2023-06-09] MEDS ORDERED: LIDOCAINE 1% INJ 10MG/ML (20 ML MDV) ONE (11:52)
[2023-06-09] MEDS ORDERED: PROPOFOL 10 MG/ML 20 ML VIAL IV ONE (11:52)
--- NOTE | 2023-06-09 12:05 | P.GSHP ---
History of Present Illness H&P Date: 06/09/23 Chief Complaint: Colon cancer screening 57-year-old female here for colonoscopy. Last colonoscopy 2015. No family history of colon cancer. Patient with history of chronic diarrhea. No rectal bleeding or melena. Past Medical History Past Medical History: Osteoarthritis (OA) Additional Past Medical History / Comment(s): migraines, pancreatitis -past hx , DDD- spinal stimulator. hx of diarrhea after cholecystectomy History of Any Multi-Drug Resistant Organisms: None Reported Past Surgical History: Cholecystectomy, Orthopedic Surgery, Tubal Ligation, Ut erine Ablation Additional Past Surgical History / Comment(s): left knee surgery age 8, Back surgery with spinal stimulator, colonoscopy Past Anesthesia/Blood Transfusion Reactions: No Reported Reaction Smoking Status: Current every day smoker - Past Family History Mother Family Medical History: Unable to Obtain Additional Family Medical History / Comment(s): no history -adopted Medications and Allergies Home Medications Medication Instructions Recorded Confirmed Type Colestipol HCl 2 tab PO BID PRN 06/02/23 06/09/23 History Melatonin [Melatonin ER] 10 mg PO HS PRN 06/02/23 06/09/23 History Unk Multi Vitamin 1 tab PO DAILY 06/02/23 06/02/23 History Allergies Allergy/AdvReac Type Severity Reaction Status Date / Time Penicillins Allergy Severe Anaphylaxis Verified 06/09/23 11:24 Sulfa (Sulfonamide Allergy Rash/Hives Verified 06/09/23 11:24 Antibiotics) Surgical - Exam Vital Signs Temp Pulse Resp BP Pulse Ox 98.3 F 77 16 112/61 97 06/09/23 11:31 06/09/23 11:31 06/09/23 11:31 06/09/23 11:31 06/09/23 11:31 Physical exam: General: Well-developed, well-nourished HEENT: Normocephalic, sclerae nonicteric Abdomen: Nontender, nondistended Extremities: No edema Neuro: Alert and oriented Assessment and Plan (1) Colon cancer screening Narrative/Plan: Will proceed with colonoscopy at this time Current Visit: Yes Status: Acute Code(s): Z12.11 - ENCOUNTER FOR SCREENING FOR MALIGNANT NEOPLASM OF COLON SNOMED Code(s): 503464606
--- NOTE | 2023-06-09 12:25 | P.PCN ---
Date of Procedure: 06/09/23 Procedure(s) Performed: PREOPERATIVE DIAGNOSIS: Colon cancer screening with chronic diarrhea POSTOPERATIVE DIAGNOSIS: Normal colon PROCEDURE: Colonoscopy with random biopsy ANESTHESIA: MAC SURGEON: Taj Oh M.D. SPECIMENS: Random colonic biopsy ENDOSCOPIC PROCEDURE: The patient was placed on the endoscopy table in the left decubitus position. The Olympus colonoscope was inserted into the anus and passed under direct visualization to the base of the cecum. The appendiceal orifice was visualized. From that point the scope was slowly withdrawn inspecting all surfaces carefully. There were no neoplastic inflammatory or polypoid lesions throughout the cecum, ascending, transverse, descending, sigmoid and rectum. There was no visible diverticulosis noted. Random biopsies of the colon took place to evaluate for microscopic colitis. Digital rectal examination was normal. The patient was taken to the recovery room in stable condition per anesthesia guidelines. RECOMMENDATIONS: Await biopsy results. Anticipate repeat colonoscopy 7-10 years.
[2023-06-09 12:36] VITALS: PULSE 80; RESP 18
[2023-06-09 12:55] VITALS: BP 108/75
== END 2023-06-09 13:25 | disposition home or self-care (01) ==
LOC: ORWHC2ENDO 11:01
PROVIDERS: ATTEND Surgery
DX: Z12.11 Encounter for screening for malignant neoplasm of colon (principal); D12.6 Benign neoplasm of colon, unspecified; K52.9 Noninfective gastroenteritis and colitis, unspecified; M19.90 Unspecified osteoarthritis, unspecified site; F17.200 Nicotine dependence, unspecified, uncomplicated; Z88.0 Allergy status to penicillin; Z88.1 Allergy status to other antibiotic agents; Z88.2 Allergy status to sulfonamides; Z90.49 Acquired absence of other specified parts of digestive tract; Z79.899 Other long term (current) drug therapy
CPT/HCPCS: 88305; 45380; J2001; J2704

== ENCOUNTER → 2024-03-14 | Outpatient (CLI) | payer OTHER ==
--- NOTE | 2024-03-14 09:53 | XR ---
EXAMINATION TYPE: XR lumbosacral spine min 4V DATE OF EXAM: 03/14/2024 CLINICAL HISTORY: pain COMPARISON: NONE TECHNIQUE: Frontal, lateral, and oblique images of the lumbar spine are obtained. FINDINGS: There are 5 lumbar type vertebral bodies identified. The lumbar spine shows satisfactory alignment without evidence of acute fracture or dislocation. Vertebral body heights are within normal limits. Moderate degenerative narrowing L5-S1. Mild facet joint arthropathy. Pancreatic calcificat ions are present compatible with chronic pancreatitis. IMPRESSION: No acute fracture or dislocation is seen in the lumbar spine.ICD 10 NO FRACTURE, INITIAL EVALUATION
--- NOTE | 2024-03-14 09:54 | XR ---
EXAMINATION TYPE: XR Hip Complete LT DATE OF EXAM: 03/14/2024 CLINICAL HISTORY: pain TECHNIQUE: AP and frogleg views of the left hip are obtained. COMPARISON: None. FINDINGS: There is no acute fracture/dislocation evident. The joint space appears within normal li mits. The overlying soft tissue appears unremarkable. IMPRESSION: 1. There is no acute fracture or dislocation.ICD 10 NO FRACTURE, INITIAL EVALUATION
== END | disposition home or self-care (01) ==
LOC: RADXRYALE 09:04
PROVIDERS: ATTEND Family Medicine
DX: M54.59 Other low back pain (principal); M51.36 Other intervertebral disc degeneration, lumbar region; M25.552 Pain in left hip
CPT/HCPCS: 72110; 73502

== ENCOUNTER → 2024-04-22 | Outpatient (CLI) | payer OTHER ==
--- NOTE | 2024-04-22 11:21 | CT ---
EXAMINATION TYPE: CT lumbar spine w con DATE OF EXAM: 04/22/2024 COMPARISON: X-ray 03/14/2024 HISTORY: low back pain, leg pain and tinging/numbness left leg/hip/foot CT DLP: 980 mGycm Automated exposure control for dose reduction was used. CONTRAST: CT scan of the lumbar is performed with IV Contrast, patient injected with 100 mL of Isovue 300. Enhanced CT of the lumbar spine was performed. Bone and soft tissue window settings are submitted as well as coronal and sagittal reconstructions. Liver low-attenuation which could be associated with cellular disease. There is numerous calcificatio ns in the pancreas likely sequela of chronic pancreatitis. Could not exclude a pancreatic duct stone with dilated pancreatic duct. Postcholecystectomy changes. L1-L2: Normal disc space height. No disc herniation protrusion or central stenosis. No facet joint arthropathy. No evidence for foraminal encroachment. L2-L3: Mild circumferential disc bulging but no canal stenosis or foraminal encroachment L3-L4: Diffuse disc protrusion with hypertrophy of the ligamentum flavum and facets resulting in adela re canal stenosis and bilateral foraminal encroachment L4-L5: Broad-based disc herniation with hypertrophy of the facet joints and ligamentum flavum resulti ng in severe canal stenosis and moderate bilateral foraminal encroachment. L5-S1: Degenerative disc disease with no canal stenosis. Advanced facet arthropathy with moderate to severe bilateral foraminal encroachment. IMPRESSION: 1. Broad-based disc herniation L3-4 and L4-5 resulting in severe canal stenosis and bilateral forami nal encroachment. MRI suggested. 2. Numerous pancreatic calcifications with pancreatic ductal dilation likely sequela of chronic pancr eatitis. Suspect pancreatic duct stone. Only partially included in the oihct-rj-wyol correlate with t he CT scan..
== END | disposition home or self-care (01) ==
LOC: RADCTMAIN 10:29
PROVIDERS: ATTEND Family Medicine
DX: M51.36 Other intervertebral disc degeneration, lumbar region (principal); M99.73 Connective tissue and disc stenosis of intervertebral foramina of lumbar region; K86.89 Other specified diseases of pancreas
CPT/HCPCS: 72132; Q9967

== ENCOUNTER → 2024-07-13 | Outpatient (CLI) | payer OTHER ==
[2024-07-13 08:15] VITALS: BP 115/73; PULSE 83; RESP 20; TEMP 97.6
--- NOTE | 2024-07-13 14:16 | P.PAINPG ---
PQRS Measure Charge Sheet Comment: HISTORY OF PRESENT ILLNESS: A 58 yr old female as a referral from Dr Howell presents today w severe and chronic LBP > 3 mo secondary to radiculopathy, spondylosis and facet arthropathy without myelopathy for evaluation. Pt states pain level is provoked at 7 /10 in intensity, constant, localized in the lumbar spine, predominantly axial, burning in character w occasional shooting pain towards the L buttock and LLE. Pain is provoked by walking/ standing for periods > 20 min. Pain is alleviated by PT x 1 wks which started Jun 2024, medications (Neurontin, Ibu), heat, repositioning and rest . Oswestry axial pain score at 23. PMH: OA , Migraine VALIENTE, Hx Pancreatitis PSH: Hx SCS, L Knee Surgery (1973), Cholecystectomy, Tubal Ligation, Uterine Ablation, Colonoscopy (2022) SH: Daily tobacco use, Occ ETOH use, No illicit drug use FH: Mo- Adopted/ Unable to obtain All: See list Meds: See list REVIEW OF ORGAN SYSTEMS: CONSTITUTIONAL: No fevers or chills. No recent weight loss. NEUROLOGICAL: + numbness and tingling along the distal extremities. No seizure disorders or headaches. MUSCULOSKELETAL: + pain PSYCHIATRIC: Denies current depression or suicidal thoughts. Physical Examinations : Constitutional : Cooperative , not in acute distress . Neurologic : Cranial nerve II to XII intact. No focal neurological deficits. Psychiatric : alert & oriented x 3. Matching mood & appropriate affect. Judgment & insight intact. Musculoskeletal : Cervical Spine Motor strength in the deltoid and biceps: Normal right side. Normal Left side Motor strength biceps and the wrist extensors: Normal right side . Normal left side Motor strength in the triceps muscle: Normal right side. Normal left side Deep tendon reflexes: Normal at the biceps. Normal at Brachioradialis. Normal at triceps Vertebral body tenderness to deep palpation over Cervical facet loading test: positive bilaterally Spurling test: positive bilaterally Neck distraction test: positive bilaterally Mikhail sign: positive bilaterally Lumbar spine Motor strength lower extremities ,thigh and legs 5/5 Right side , 5/5 Left side Deep tendon reflexes : Normal Knee Jerk. Normal Ankle Jerk Vertebral body tenderness over L4 Aleman Test positive L L4-L5 Lumbar facet Loading Test: positive Right / positive Left Range of motion of the lumbar spine Flexion 30 degrees, extension 10 degrees Straight Leg Raise test: Left/ Right positive at degrees Clive test: positive right / positive left. Severe tenderness over the Sacroiliac joint on the Right / Left sides Gaenslen test: positive bilaterally Seated flexion test: positive bilaterally. Sacral spine : Severe tenderness over the Sacroiliac joint: right side / left side Range of motion: Flexion of the lumbar spine <60 degrees Range of motion: Extension of the lumbar spine <20 degrees Gaenslen's Test positive Clive test: positive right side / left side Thigh Thrust Test Sacral Thrust Test Imaging: MRI non contrast lumbar spine from 06/18/24 reviewed Assessment/ Plan : L4-L5 radiculopathy Recommendation of KEAGAN L4- L5 #1. Would benefit from KEAGAN L4-L5 or L TFESI L4-L5. Risks, benefits of procedure discussed and patient verbalized understanding. Admits to anti- coagulant use or medical history of diabetes. Protocol for discontinuation/ continuation of medications hebert procedure discussed. All questions answered. I have spent greater than 30 minutes on patient care today. Dr Gil was available by phone for the evaluation of this patient. The time was used to review the medical records including relevant urine studies and Prescription history (MAPs), review of the available imaging, evaluation and examination of the patient, coordination of care with the medical staff and if applicable referring physicians, as well as creation of the medical record PQRS Narrative: Smoking Status Current every day smoker Home Medications: Ambulatory Orders Colestipol HCl 2 tab PO BID PRN 06/02/23 Melatonin [Melatonin Tr] 10 mg PO HS PRN 06/02/23 Unk Multi Vitamin 1 tab PO DAILY 06/02/23 Controlled Substance Measures - Controlled Substance Measures Is patient prescribed a controlled substance at discharge?: No
== END ==
LOC: PNWHC3 07:47
PROVIDERS: ATTEND Specialist
DX: M51.16 Intervertebral disc disorders with radiculopathy, lumbar region (principal); F17.200 Nicotine dependence, unspecified, uncomplicated; Z88.0 Allergy status to penicillin; Z88.2 Allergy status to sulfonamides
CPT/HCPCS: 99211

== ENCOUNTER 2024-08-19 09:48 | Day surgery (SDC) | payer OTHER ==
[~2024-08-19 09:48] MED LIST changes: -LIDOCAINE 1% (10MG/ML) FOR IV START INTRADERMA PRN
[2024-08-19 10:28] VITALS: TEMP 97.9
[2024-08-19] MEDS ORDERED: methylPREDNISolone ACETATE 80 MG/ML 1 ML VIAL ONE (11:50)
[2024-08-19] MEDS ORDERED: IOPAMIDOL M200 10 ML VIAL ONE (11:50)
--- NOTE | 2024-08-19 11:57 | P.PCN ---
Date of Procedure: 08/19/24 Procedure(s) Performed: PREOPERATIVE DIAGNOSIS: 1- Lumbar radiculopathy POSTOPERATIVE DIAGNOSIS: 1-lumbar radiculopathy PROCEDURE 1. Lumbar epidural steroid injection under fluoroscopic guidance at the L4-5 level. (Fluoroscopy imaging was available in radiology department) 2. Lumbar epidurogram. ANESTHESIA: Lidocaine 1% 3 and then only. EBL: Minimal PROCEDURE INDICATION: The patient with low back pain and radiculitis symptoms unresponsive to conservative treatment. Fluoroscopy was used to optimize visualization of the needle placement and to maximize safety. PROCEDURE DESCRIPTION / TECHNIQUE: The patient was seen and identified in the preoperative area. Risks, benefits, complications including but not limited to infections ,bleeding ,allergic reaction to the medications ,nerve damage and not complete pain releife , and alternatives were discussed with the patient. The patient agreed to proceed with the procedure and signed the consent, and vital signs were stable. Patient was taken to the OR and time out was completed. The patient was placed in the prone position on procedure table and a pillow was placed under the abdomen to reduce lumbar lordosis. The lumbosacral area was prepped and draped in the usual sterile fashion.ere closely monitored during the procedure. Vital signs was monitered during the entire procedure. Using anterior-posterior fluoroscopy, the L4-5 interlaminar space was identified and the skin over this site was marked and then infiltrated with 1% lidocaine subcutaneously. Subsequently, a 20-gauge Tuohy epidural needle was inserted and advanced toward the epidural space using the ``Loss of resistance technique and guided by AP and lateral fluoroscopy. The correct needle position in the epidural space was verified with the injection of 2 mL of the water soluble contrast dye Isovue 200 contrast and observing an excellent epidurogram with the epidural spread of the dye, after negative aspiration for blood and CSF and in the absence of paresthesias. Again after negative aspiration, a 6 ml mixture containing 80 mg of Depo-medrol ( Preservetive Free ), and 2 ml of preservative free Normal Saline, and 2 ml of preservative free lidocaine 1% solution was injected and a washout of epidurogram was seen. Needle was withdrawn intact, skin was cleansed, and bandages were applied. COMPLICATIONS: None DISPOSITION / PLANS: The patient was placed in a supine position and transferred to the recovery area in a stable condition for observation. There was no evidence of lower extremity motor or sensory deficit after the procedure. Patient was discharged from the recovery room after meeting discharge criteria. Home discharge instructions were given to the patient by the staff. The patient was reexamined prior to discharge. The patient will schedule a follow up in the clinic in 2-4 weeks.
[2024-08-19 12:06] VITALS: RESP 16
[2024-08-19 12:15] VITALS: BP 107/68; PULSE 79
--- NOTE | 2024-08-19 12:44 | FL ---
EXAMINATION TYPE: FL guided pain mgmt statistic DATE OF EXAM: 08/19/2024 FLUOROSCOPY Lumbar Epid Inj 2sec fluoro time .[id number] DAP 1 image is submitted. [facility], , 08/19/2024 12:42 PM
== END 2024-08-19 12:33 | disposition home or self-care (01) ==
LOC: ORPAIN 09:48
PROVIDERS: ATTEND Specialist
DX: M54.16 Radiculopathy, lumbar region (principal); Z88.0 Allergy status to penicillin; Z88.2 Allergy status to sulfonamides
CPT/HCPCS: 62323; Q9966; J1010

== ENCOUNTER → 2024-09-12 | Outpatient (CLI) | payer OTHER ==
[2024-09-12 08:24] VITALS: BP 132/80; PULSE 78; RESP 16; TEMP 97.1
--- NOTE | 2024-09-12 08:55 | P.PN ---
Progress Note - Text Patient has come for follow-up visit following epidural steroid injection. Relates she did not receive any significant improvement of her pain. Pain is located low back and lower extremities. At current time the lower extremity pain worse on left side bothers her most. Physical Examinations : -Constitutiona : Cooperative , not in acute distress . -HEENT : nech : supple , no Lymphadenopathy , normal thyroid size . : eyes : no ptosis , no icterus, no phot ophobia . - neurologic : Cranial nerve II to XII intact , no focal neurological deffecit . -psychatric : alert , oriented X 3 , appropriate affect , intact judgment and insight . -Lymphatic : no Lymphadenopathy . - musculoskeltal : Lumber spine moter stegnth lower extremities ,thigh and legs 5/5 Right side , 5/5 Left side deep tendon reflexes : normal Knee Jerk , normal ankle Jerk lumber facet Loading Test =positive Right , positive Left Range of motion of the lumbar spine Flexion 30 degrees, extension 10 degrees strait leg raising test = positive left side. Assessment and plan= chronic low back pain secondary to lumbar degenerative disc disease 5 radiculopathy. Will schedule for bilateral L5-S1 transforaminal epidural steroid injection. Patient denies any side effects of the current pain medication and the current treatment/medication helping the patient to do activity of daily living , Diagnoses, prognosis, treatment options, including but not limited to physical therapy, medication management, interventional therapies, and surgery, were discussed with the patient All the questions answered Patient was counseled not to drive or operate heavy equipment while using narcotic medication, and advised not to use alcohol or any Illicit drugs while using the narcotis. understanding that lack of compliance with any of the above instructions, will likely to cause discharge from, the pain service, not to renew his narcotic prescriptions MAPS Reviwed and it was apropriate . Medication managements= patient will be given prescription refills for . I spent extensive time with the patient and review of her records. Medications seem to be offering good relief. There is no signs of any misuse or diversion. I have directed her to her neurologist for further evaluation, none of these issues or new and I believe she has had extensive workup regarding these issues. I do also believe that some of these issues are related to her experiences with her son and likely due to her own anxiety regarding medical problems. Unfortunately his pain medications offer her some benefit and are unlikely to offer long-term relief but in the meantime do offer some benefit so we'll continue those medications. We will prescribe these medications for 2 months time. I discussed with the patient that these medications need to be used as prescribed as misuse of medication can cause significant dysfunction and possibly . I have spent 35 minutes on patient care today. The time was used to review the medical records including relevant urine studies and Prescription history (MAPs), review of the available imaging, evaluation and examination of the patient, coordination of care with the medical staff and if applicable referring physicians, as well as creation of the medical record. Maps were checked and appropriate, opioid start talking form is on file and updated, urine drug screens of been appropriate and have been reviewed. ,
== END ==
LOC: PNWHC3 08:03
PROVIDERS: ATTEND Pain Medicine Interventional Pain Medicine
DX: M51.16 Intervertebral disc disorders with radiculopathy, lumbar region (principal); F17.210 Nicotine dependence, cigarettes, uncomplicated; Z88.2 Allergy status to sulfonamides; Z88.0 Allergy status to penicillin
CPT/HCPCS: 99211

== ENCOUNTER → 2024-10-25 | Outpatient (CLI) | payer OTHER ==
--- NOTE | 2024-10-25 15:32 | XR ---
EXAMINATION TYPE: XR foot complete LT DATE OF EXAM: 10/25/2024 3:28 PM INDICATION: Patient age:Female; 58 years old; Reason for study: [id number] LT FOOT PAIN; [facility]. pain COMPARISON: None TECHNIQUE: The left foot was examined in the AP, oblique, and lateral projections. FINDINGS: No evidence of any acute osseous pathology. No evidence of soft tissue swelling. Joints are preserve d. IMPRESSION: No evidence of acute fracture. [facility], , 10/25/2024 3:29 PM
== END | disposition home or self-care (01) ==
LOC: RADXRYALE 15:13
PROVIDERS: ATTEND Family Medicine
DX: M79.672 Pain in left foot (principal)

== ENCOUNTER → 2025-03-21 | Outpatient (CLI) | payer OTHER ==
--- NOTE | 2025-03-21 15:16 | XR ---
EXAMINATION TYPE: XR lumbar spine 2 or 3V DATE OF EXAM: 03/21/2025 2:58 PM COMPARISON: 01/17/2025 CLINICAL INDICATION: Female, 59 years old with history of [id number] SPINAL STENOSIS; TECHNIQUE: XR lumbar spine 2 or 3V views are submitted. FINDINGS: Postsurgical changes are stable L4-S1. Generalized osteopenia. Stimulator device and lead are noted. Additional clips are seen in the abdomen. Numerous punctate calcifications likely related to chronic pancreatitis. IMPRESSION: 1. Stable postoperative change. [facility], , 03/21/2025 3:13 PM
== END | disposition home or self-care (01) ==
LOC: RADXRYALE 14:07
PROVIDERS: ATTEND Neurological Surgery
DX: M48.061 Spinal stenosis, lumbar region without neurogenic claudication (principal); Z98.890 Other specified postprocedural states
CPT/HCPCS: 72100